=== PATIENT | female | born 1950 | race Caucasian/White ===

== ENCOUNTER 2019-04-18 11:51 | Emergency (ER) | payer MEDICARE ==
[2019-04-18] MEDS ORDERED: Ketorolac Tromethamine 30 MG/ML VIAL ONE (12:56)
--- NOTE | 2019-04-18 12:58 | RAD ---
XR Knee Lt 4 View STANDARD History: [Chronic pain] Comparison: None. Findings: There is medial compartment joint space narrowing with flattening of the articular surfaces as well as osteophyte formation. Small reactive joint effusion. Large inferior patellar and trochlear osteophytes. Incidental note is made of a fabella. Likely multiple bodies within a popliteal cyst. Impression: Degenerative changes greatest in the medial and patellofemoral compartments.
== END 2019-04-18 13:37 | disposition home or self-care (01) ==
LOC: ERS 11:51
DX: S83.92XA Sprain of unspecified site of left knee, initial encounter (principal); I10 Essential (primary) hypertension; J45.909 Unspecified asthma, uncomplicated; Z79.899 Other long term (current) drug therapy; Z79.1 Long term (current) use of non-steroidal anti-inflammatories (NSAID); X58.XXXA Exposure to other specified factors, initial encounter
CPT/HCPCS: 96372; J1885

== ENCOUNTER 2020-03-04 14:19 | Observation (INO) | payer MEDICARE ==
[2020-03-04] MEDS ORDERED: Adacel (T-DAP) 0.5 ML SYRINGE ONE (14:22)
[2020-03-04 14:39] LABS: #Eosinphils 0.2 thou/uL (0.0-0.7); #Lymphocytes 1.6 thou/uL (1.20-3.40); #Monocytes 0.6 thou/uL (0.11-0.59); #Neutrophils 7.5 thou/uL (1.40-6.50); %Basophils 0.4 % (0.0-1.0); %Eosinophils 1.6 % (0.0-10.0); %Lymphocytes 16.1 % (21.0-51.0); %Monocytes 6.1 % (0.0-10.0); %Neutrophils 75.8 % (42.0-75.0); Hemoglobin 10.8 g/dL (12.0-16.0); Mean Corpuscular HGB CONC 30.7 g/dL (32.0-36.0); Mean Corpuscular Hemoglobin 29.2 pg (27.0-31.0); Mean Platelet Volume 8.7 fL (7.4-10.4); Platelet Count 188 thou/uL (130-400); RBC Distribution Width 11.7 % (11.5-14.5); Red Blood Cell (RBC) Count 3.69 mill/uL (4.20-5.40); White Blood Cell (WBC) Count 9.9 thou/uL (4.8-10.8)
--- NOTE | 2020-03-04 14:49 | RAD ---
FRONTAL RADIOGRAPH CHEST: Date: 03/04/2020 COMPARISON: None. HISTORY: Fall, trauma, pain. FINDINGS: Prominence of the cardiac silhouette noted. Mild nonspecific increased linear interstitial density. N o lobar consolidation or alveolar edema. IMPRESSION: No focal consolidation or alveolar edema. POS: [facility]
[2020-03-04] MEDS ORDERED: Morphine 4 MG/ML VIAL ONE (14:58)
[2020-03-04] MEDS ORDERED: Lidocaine 1% w/Epinephrine 1:100K 20 ML VIAL ONE (14:58)
[2020-03-04 15:10] LABS: ALT (SGPT) 11 U/L (8-55); AST (SGOT) 14 U/L (5-34); Albumin 4.1 g/dL (3.4-4.8); Alkaline Phosphatase 60 U/L (40-110); Anion Gap 12 mmol/L (10-20); BUN (Urea Nitrogen) 27 mg/dL (9.8-20.1); Bilirubin, Total Less than 0.2 mg/dL (0.2-1.2); Calc. Creatinine Clearance 0 mL/min (70-130); Calcium 9.2 mg/dL (7.8-10.44); Carbon Dioxide 25 mmol/L (23-31); Chloride 109 mmol/L (98-107); Estimated GFR-MDRD 47; Glucose 96 mg/dL (83-110); Potassium 4.2 mmol/L (3.5-5.1); Protein, Total 7.1 g/dL (6.0-8.3); Sodium 142 mmol/L (136-145)
--- NOTE | 2020-03-04 15:17 | CT ---
CT ABDOMEN AND PELVIS WITHOUT CONTRAST: HISTORY: Level II trauma. Abdominal pain. FINDINGS: Comparison is made with the exam of 03/17/2016. Absence of oral and IV contrast reduces the sensitivity of the exam, particularly for evaluation of s olid organs involved. The liver, spleen, pancreas, adrenal glands, and kidneys have a stable appearance. No free air or fr ee fluid is seen. No calcified gallstones are seen. The gallbladder and urinary bladder appear inta ct. The small bowel loops are not abnormally dilated. A punctate nonobstructing right renal calculus is present. There are vascular calcifications without evidence of aneurysmal dilatation of the abdomina l aorta. There is colonic diverticulosis. There are degenerative changes of the lower lumbar spine. Also noted are postop changes of the lower lumbar spine. There is mild dilatation of the subcutaneous fat with foci of free air noted in the posterolateral as pect of the right lower chest and upper abdomen. There are fractures involving the right 11th and 12 th ribs. IMPRESSION: 1. Soft tissue air and induration of fat in the right posterolateral lower chest and abdomen. 2. Fractures of the right 11th and 12th ribs. Discussed over the telephone with the ER physician, Dr. Delgado at 2:49 p.m. CODE CR POS: [facility]
[2020-03-04] MEDS ORDERED: Ondansetron ODT 4 MG TAB PO PRN (16:13)
[2020-03-04] MEDS ORDERED: Dextrose 50% Abboject 50 ML SYRINGE SLOW IVP PRN (16:13)
[2020-03-04] MEDS ORDERED: traMADol HCl 50 MG TAB PO PRN ×2 (16:13)
[2020-03-04] MEDS ORDERED: Dextrose 5% in Water 1,000 ML IV PRN (16:13)
[2020-03-04] MEDS ORDERED: Ondansetron PF 4 MG/2 ML Vial IVP PRN (16:13)
[2020-03-04] MEDS ORDERED: Cyclobenzaprine 10 MG TAB PO PRN (16:13)
[2020-03-04] MEDS ORDERED: Ibuprofen 600 MG TAB PO SCH (17:00)
--- NOTE | 2020-03-04 18:42 | HP ---
REQUESTING PHYSICIAN: Dr. Delgado. ATTENDING SURGEON: Dr. German. CONSULTATIONS: None. HISTORY OF PRESENT ILLNESS: The patient is a 69-year-old woman who was working in her yard when she tripped and fell against a metal latch on her fence stabbing herself in the right anterior flank at approximately 1000 hours. She put a small bandage on herself and continued working and was visiting her brother when her pain started to get increasingly worse, at which time he called an ambulance, who brought her to the emergency department as a level 2 trauma activation for her flank laceration and increasing abdominal pain. En route, the patient was given 100 mcg of fentanyl and 2 g of Ancef. ALLERGIES: IODINE AND PENICILLIN. CURRENT MEDICATIONS: 1. Soma. 2. Hydrocodone 10 mg-325. 3. Amlodipine. 4. Metoprolol. 5. Prednisone. 6. Atorvastatin. 7. Gabapentin. PAST MEDICAL HISTORY: Osteoarthritis, degenerative joint disease, hypertension, left shoulder injury to include rotator cuff injury, asthma. PAST SURGICAL HISTORY: Appendectomy; hysterectomy; orthopedic surgery to include shoulder, foot, and spinal surgery. SOCIAL HISTORY: The patient lives at home independently. She denies drug, tobacco, or alcohol use. REVIEW OF SYSTEMS: A 10-point review of systems is negative as otherwise stated. PHYSICAL EXAMINATION: VITAL SIGNS: Blood pressure 147/69, heart rate 63, respirations 22, oxygen saturation is 96% on room air, and temperature is 98.1. GENERAL: The patient is resting comfortably in ER bed. She is awake, alert, conversant. [place] Coma Scale is 15. HEENT: Head is normocephalic, atraumatic. Eyes, extraocular motion intact. PERRLA bilaterally. Ears are atraumatic without discharge. Nose is atraumatic without discharge. Oropharynx is clear. NECK: Nontender. Trachea is midline. No JVD. CHEST: Clear to auscultation with good inspiratory and expiratory effort, though she does have some discomfort with deep inspiration, particularly on the right side near her laceration. ABDOMEN: Soft, nondistended without peritoneal signs. The patient is noted to have approximately 5 cm laceration to her right anterior flank along her right lateral rib cage with exposed subcutaneous tissue. There is no noted bleeding. PELVIS: Stable. EXTREMITIES: Neurovascularly intact x4. BACK: Atraumatic and nontender. LABORATORY FINDINGS: White blood cell count 9.9, hemoglobin 10.8, hematocrit 35.0, platelets 188. Sodium 142, potassium 4.2, chloride 109, CO2 of 25, BUN 27, creatinine 1.14, glucose 96. RADIOGRAPHIC FINDINGS: AP chest x-ray shows no focal consolidation or alveolar edema. CT of the abdomen and pelvis without contrast shows soft tissue air and induration of fat in the right posterolateral lower chest and abdomen. Fractures of right 11th and 12th ribs. ASSESSMENT AND PLAN: 1. Status post penetrating injury to right posterolateral lower chest and abdomen with delayed presentation of approximately 4 hours. 2. Fractures of right ribs 11 and 12. 3. Acute on chronic pain. 4. History of hypertension and asthma. PLAN: Plan will be to admit the patient to the surgical floor for pain control, pulmonary toilet, gastritis, and mechanical VTE prophylaxis. The patient will likely be able to be discharged home tomorrow. The evaluation and examination were done with Dr. German in the [facility] at the time of the patient's arrival. Job ID: [id number]
[2020-03-04] MEDS: Famotidine 20 MG TAB PO SCH (20:42)
[2020-03-04] MEDS: predniSONE 5 MG TAB PO SCH (20:43)
[2020-03-04] MEDS ORDERED: Gabapentin 100 MG CAP PO SCH (21:00)
[2020-03-04] MEDS ORDERED: Amlodipine 10 MG TAB PO SCH (21:00)
[2020-03-04] MEDS: HYDROcodone/Acetaminophen 10/325 mg Tablet PO PRN (22:16)
[2020-03-04] MEDS: Acetaminophen 500 MG TAB PO SCH (22:50)
--- NOTE | 2020-03-05 00:33 | PRG ---
DATE OF SERVICE: 03/04/2020 SUBJECTIVE: Ms. Fajardo remained on the surgical floor. The patient was seen on rounds this evening. The patient reports pain is well controlled. She tolerated with her regular diet. She developed no fever or shortness of breath. The patient denied nausea or vomiting. OBJECTIVE: GENERAL: Currently, the patient lying in bed comfortable with no acute respiratory distress. VITAL SIGNS: Stable. LUNGS: Clear bilaterally. HEART: Regular rate and rhythm. ABDOMEN: Soft, nondistended. EXTREMITIES: Neurovascularly intact x4. NEUROLOGY: No focal neurologic deficits. ASSESSMENT: 1. Status post penetrating injury of the right lower chest and abdomen. 2. Right rib fracture. 3. History of hypertension and asthma. PLAN: Will be continue supportive care. Continue pain control. We will resume on home medication. The patient will be working on physical therapy and occupational therapy tomorrow. Job ID: [id number]
[2020-03-05] MEDS: Acetaminophen 500 MG TAB PO SCH (00:34)
[2020-03-05 00:41] VITALS: BMI 36.8
[2020-03-05] MEDS: HYDROcodone/Acetaminophen 10/325 mg Tablet PO PRN (05:15)
[2020-03-05] MEDS ORDERED: Acetaminophen 325 MG TAB PO SCH ×2 (06:00→08:53)
[2020-03-05 08:10] LABS: #Eosinphils 0.3 thou/uL (0.0-0.7); #Lymphocytes 1.9 thou/uL (1.20-3.40); #Monocytes 0.4 thou/uL (0.11-0.59); #Neutrophils 4.4 thou/uL (1.40-6.50); %Basophils 0.2 % (0.0-1.0); %Lymphocytes 27.1 % (21.0-51.0); %Monocytes 6.1 % (0.0-10.0); %Neutrophils 62.6 % (42.0-75.0); Hemoglobin 10.5 g/dL (12.0-16.0); Mean Corpuscular HGB CONC 31.2 g/dL (32.0-36.0); Mean Corpuscular Volume 96.3 fL (78.0-98.0); Mean Platelet Volume 8.3 fL (7.4-10.4); Platelet Count 166 thou/uL (130-400); RBC Distribution Width 11.6 % (11.5-14.5)
[2020-03-05 08:22] LABS: Anion Gap 12 mmol/L (10-20); BUN (Urea Nitrogen) 19 mg/dL (9.8-20.1); Calc. Creatinine Clearance 99 mL/min (70-130); Carbon Dioxide 25 mmol/L (23-31); Chloride 108 mmol/L (98-107); Estimated GFR-MDRD 66; Glucose 95 mg/dL (83-110); Magnesium 1.9 mg/dL (1.6-2.6); Phosphorus 3.6 mg/dL (2.3-4.7); Potassium 4.6 mmol/L (3.5-5.1); Sodium 140 mmol/L (136-145)
[2020-03-05] MEDS ORDERED: HYDROcodone/Acetaminophen 10/325 mg Tablet PO PRN (08:52)
[2020-03-05] MEDS ORDERED: Gabapentin 300 MG CAP PO SCH ×2 (09:00→18:00)
[2020-03-05] MEDS: HYDROcodone/Acetaminophen 10/325 mg Tablet PO SCH ×3 (09:40→16:41)
--- NOTE | 2020-03-05 09:40 | RAD ---
CHEST 1 VIEW: INDICATION: History of followup examination for trauma. COMPARISON: Chest radiograph dated 03/04/2020. FINDINGS: Mild cardiomegaly is stable-appearing. Lungs are clear. Minimal blunting of the left costophrenic a ngle is stable-appearing. No pneumothorax is demonstrated. Osseous structures are unchanged. IMPRESSION: 1. Stable mild blunting of the left costophrenic angle may reflect a tiny left pleural effusion. 2. Stable cardiomegaly. POS: [facility]
[2020-03-05] MEDS: predniSONE 5 MG TAB PO SCH (09:41)
[2020-03-05] MEDS: Famotidine 20 MG TAB PO SCH (09:41)
[2020-03-05] MEDS ORDERED: CARISOPRODOL 350 MG PO PRN (09:57)
[2020-03-05] MEDS ORDERED: Magnesium 2 GM/50 ML 2 GM in Premix Bag 1 BAG IVPB SCH (10:15)
[2020-03-05] MEDS ORDERED: Triamcinolone 0.1% Cream 15 GM TUBE TOP PRN (10:37)
[2020-03-05] MEDS ORDERED: Cyclobenzaprine 10 MG TAB PO PRN (10:42)
--- NOTE | 2020-03-05 13:06 | PRG ---
DATE OF SERVICE: 03/05/2020 SUBJECTIVE: The patient was seen this morning during rounds. She was sitting up at the edge of the bed and reported she had just gone to the restroom on her own. She states her pain is very poorly controlled. She has a history of chronic pain for which she is seeing her primary care physician and receives scheduled narcotics. She is not requiring any nasal cannula oxygen at this time, but she reports her pain is at a 9/10. On admission, she also had an acute kidney injury, which is complicating her pain management. OBJECTIVE: VITAL SIGNS: Temperature 97.5, pulse 59, respirations 16, oxygen saturation 95% on room air, blood pressure 126/66. GENERAL: Elderly female, sitting up at edge of bed with no signs of acute distress. PULMONARY: Equal chest rise and fall. Clear breath sounds bilaterally, but diminished at bases bilaterally. No signs of acute respiratory distress. CARDIAC: Bradycardic, but regular rhythm. No murmurs, gallops, or rubs. GI: Abdomen is soft, nontender, nondistended. EXTREMITIES: 2+ pulses in all extremities. Gross motor and sensation are intact. No significant swelling noted. NEUROLOGICAL: GCS is 15. LABORATORY FINDINGS: White count 7, hemoglobin 10.5, hematocrit 33.7, platelets 166. Sodium 140, potassium 4.6, chloride 108, bicarb 25, BUN 19, creatinine 0.85. Phosphorus 3.6, magnesium 1.9. DIAGNOSTIC FINDINGS: Chest x-ray completed this morning demonstrates stable mild blunting of the left costophrenic angle, may reflect the tiny left pleural effusion. Stable cardiomegaly. ASSESSMENT: 1. Status post mechanical fall from standing. 2. Right posterior lateral lower chest wall and abdomen abrasion, stable. 3. Right-sided 11th and 12th rib fractures, stable. 4. Acute kidney injury, resolving. 5. Complicated acute traumatic pain on chronic pain, unstable, worse. 6. History of osteoarthritis, degenerative joint disease, hypertension, left rotator cuff injury, asthma, and chronic pain. PLAN: Continue current regular diet. Continue incentive spirometry, and aggressive pulmonary hygiene. Continue amlodipine and metoprolol with hold parameters. The patient restarted on her home regimen for pain control, which includes [place] 10 one q.4 hours, gabapentin 600 t.i.d. with an additional 1200 at night. We will continue also Flexeril p.r.n. and add another [place] 10 mg q.6 h. p.r.n. for breakthrough pain. Discontinue scheduled Tylenol as the patient's [place] prescription will be close to the 1 g maximum. We will hold NSAIDs as the patient had a recent acute kidney injury. Restart her home prednisone. The patient is to work with Physical and Occupational Therapy today. She will likely need placement in acute rehab facility as she has complicated pain management with a history of chronic pain, being treated by her primary care physician. She is on several scheduled medications that will need adjustment as well. It is important that we achieve good pain control and continue aggressive pulmonary hygiene as the patient is at a very high risk for developing a pneumonia as she is greater than 63 years of age. She will also need close followup for her resolving acute kidney injury. The patient lives at home alone and will be high risk for developing a pneumonia and DVT at home. We will follow up with recommendations from physical therapy and ask Case Management to start working on rehab placement. This patient was seen and evaluated by Dr. German and myself this morning during rounds. Job ID: [id number]
[2020-03-05 16:14] VITALS: BP 116/71; TEMP 97.6
[2020-03-05] MEDS ORDERED: Prevnar 13-Val Conj/PF 0.5 ML SYRINGE IM ONE (21:00)
[2020-03-05] MEDS ORDERED: Gabapentin 400 MG CAP PO SCH (21:00)
[2020-03-05] MEDS ORDERED: Amlodipine 10 MG TAB PO SCH (21:00)
--- NOTE | 2020-03-06 07:13 | DIS ---
DATE OF ADMISSION: 03/04/2020 DATE OF DISCHARGE: 03/05/2020 ADMISSION DIAGNOSES: Mechanical fall, right posterolateral chest and abdominal wound, and right 11th and 12th rib fracture, and acute kidney injury. DISCHARGE DIAGNOSES: Mechanical fall, right posterolateral chest and abdominal wound, and right 11th and 12th rib fracture. CONSULTING PHYSICIAN: None. PROCEDURES: None. HOSPITAL COURSE: The patient is a 69-year-old female, who presented to the emergency department after a mechanical fall. She was evaluated and found to have a right 11th and 12th rib fracture as well as a right posterolateral lower chest and abdominal wall wound, which required no intervention. At that time, she also had an acute kidney injury, which resolved the next day. She was admitted for pain control. The next day, she worked with Physical and Occupational Therapy and had good pulmonary hygiene. At the time of discharge, her pain was well controlled. She does take quite a few pain medications at home as she has chronic pain and takes multiple medications including Soma, gabapentin, and [place]. At the time of discharge, her pain was well controlled on a regimen, and she was told to follow up for additional [place] pain medications from her primary care physician, who prescribes medication. She was told to take an additional [place] 10 q.6 hours p.r.n. for breakthrough pain. No additional [place] prescription was given to her at the time of discharge. DISCHARGE DISPOSITION: Home. DISCHARGE CONDITION: Satisfactory. PHYSICAL EXAMINATION: VITAL SIGNS: Temperature 97.8, pulse 60, respirations 16, oxygen saturation 96% on room air, and blood pressure 105/68. GENERAL: Well-appearing elderly female, sitting up in bed with no signs of acute distress. PULMONARY: Equal chest rise and fall. Clear breath sounds bilaterally. No signs of acute respiratory distress. CARDIAC: Regular rate and rhythm. No murmurs, gallops, or rubs. GASTROINTESTINAL: Soft, nontender, nondistended. EXTREMITIES: 2+ pulses in all extremities. Gross motor and sensation are intact. No significant swelling noted. NEUROLOGIC: GCS 15. DISCHARGE INSTRUCTIONS: The patient was discharged home. Activity as tolerated. Regular diet. Incentive spirometry 10 to 15 times an hour while awake. Avoid sleeping and lying down too much. DISCHARGE MEDICATIONS: Included, 1. Amlodipine. 2. Flexeril. 3. Gabapentin at her home dose. 4. [place] 10 at her home dose of q.4 hours with an additional 10 q.6 hours for breakthrough pain. 5. Metoprolol. 6. Prednisone. 7. Triamcinolone cream. 8. Soma. 9. Lidocaine patches. 10. Valtrex. FOLLOWUP APPOINTMENTS: The patient is to follow up with her primary care physician in the next 5 to 7 days for pain management. She is also to follow up with trauma clinic on March 19, 2020, at 2 p.m. with a chest x-ray. This is a summary of the patient's hospitalization. For full details, please see her medical record in its entirety. Job ID: [id number]
== END 2020-03-05 17:00 | disposition home or self-care (01) ==
LOC: ERS 14:19 → SURG A 15:11
PROVIDERS: ADMIT Surgery; ATTEND Surgery
DX: S21.131A Puncture wound without foreign body of right front wall of thorax without penetration into thoracic cavity, initial encounter (principal); S31.139A Puncture wound of abdominal wall without foreign body, unspecified quadrant without penetration into peritoneal cavity, initial encounter; S22.41XA Multiple fractures of ribs, right side, initial encounter for closed fracture; G89.11 Acute pain due to trauma; N17.9 Acute kidney failure, unspecified; G89.29 Other chronic pain; I10 Essential (primary) hypertension; J45.909 Unspecified asthma, uncomplicated; M19.90 Unspecified osteoarthritis, unspecified site; Z79.52 Long term (current) use of systemic steroids; Z79.899 Other long term (current) drug therapy; Z88.0 Allergy status to penicillin; Z88.8 Allergy status to other drugs, medicaments and biological substances; W01.198A Fall on same level from slipping, tripping and stumbling with subsequent striking against other object, initial encounter; Y92.096 Garden or yard of other non-institutional residence as the place of occurrence of the external cause
CPT/HCPCS: 12002; 71045 ×2; 74176; 80048; 80053; 83735; 84100; 85025 ×2; 86850; 86900; 86901; 90471; 90715; 94640 ×2; 94760; 96361; 96365; 96375; 97139 ×3; 97535; 99285; G0378 ×3; J2270; J3475; J7512 ×2; J7620 ×2; 36415; 96374; G0390

== ENCOUNTER 2020-03-18 14:13 | Outpatient (CLI) | payer MEDICARE ==
--- NOTE | 2020-03-18 14:32 | RAD ---
Chest 2 views HISTORY: Chest pain. Rib fracture. COMPARISON: 03/05/2020. FINDINGS: Cardiac silhouette is unremarkable. Pulmonary vasculature upper limits of normal with wides pread reticulonodular interstitial prominence. Mediastinum is midline. Lungs remain slightly hyperinflated. No confluent airspace consolidation, pleural fluid, or pneumothorax. Right lower rib fractures not visible on this exam. IMPRESSION : Borderline pulmonary vascular congestion.
== END 2020-03-18 14:14 | disposition home or self-care (01) ==
LOC: BICRAD 14:13
PROVIDERS: ATTEND Physician Assistant
DX: S22.39XA Fracture of one rib, unspecified side, initial encounter for closed fracture (principal); I28.8 Other diseases of pulmonary vessels
CPT/HCPCS: 71046

== ENCOUNTER 2020-09-09 14:10 | Emergency (ER) | payer MEDICARE ==
--- NOTE | 2020-09-09 15:10 | RAD ---
Right hip 2 views HISTORY: Fall. Injury. FINDINGS: Mild joint space narrowing, osteophytosis, and subchondral sclerosis. Femoral head contour is maintained. Small enthesophyte projects laterally from the greater trochanter. No acute fracture or dislocation. IMPRESSION : Mild osteoarthritic changes right hip. No acute osseous abnormalities are demonstrated.
[2020-09-09] MEDS ORDERED: Ketorolac Tromethamine 30 MG/ML VIAL ONE (15:33)
--- NOTE | 2020-09-10 07:00 | RAD ---
Right knee 4 views HISTORY: Fall. Injury. FINDINGS: Near complete loss of joint space at the medial compartment with cortical remodeling of the articular surfaces and moderate osteophytosis. Gas present within the joint space. Mild osteophytosis of the other compartments. Small amount of fluid distends the suprapatellar bursa on the lateral view. A 0.5 cm oval calcification projecting just anterior to the distal femur on the lateral view is favored to be outside of the joint fluid and may represent a phlebolith or other soft tissue calcification rather than an intracapsular loose body. IMPRESSION : Prominent OsteoArthritic changes medial compartment with small joint effusion.
--- NOTE | 2020-09-10 07:00 | RAD ---
Exam: XR Ankle Rt 3 View STANDARD HISTORY: Injury after a fall. Right foot pain. COMPARISON: 01/07/2011 FINDINGS: No acute fracture, dislocation, or other acute osseous abnormality is identified. There is an osseous fragment just dorsal to the navicular bone which was not seen on study in 2010. T his is suggestive of a avulsion injury. However, the margins appear corticated, and this likely represents a more remote finding. There is subcutaneous soft tissue swelling seen about the ankle fernando aterally as well as dorsal to the mid foot. Posterior and plantar calcaneal enthesophytes are identified. Osteopenia is present. IMPRESSION: 1. No acute osseous abnormality is identified. 2. Subcutaneous soft tissue swelling. 3. Findings suggestive of a remote avulsion injury dorsal aspect of the navicular bone.
== END 2020-09-09 16:05 | disposition home or self-care (01) ==
LOC: ERS 14:10
DX: S93.401A Sprain of unspecified ligament of right ankle, initial encounter (principal); S76.011A Strain of muscle, fascia and tendon of right hip, initial encounter; S80.01XA Contusion of right knee, initial encounter; M19.90 Unspecified osteoarthritis, unspecified site; I10 Essential (primary) hypertension; J45.909 Unspecified asthma, uncomplicated; W10.9XXA Fall (on) (from) unspecified stairs and steps, initial encounter
CPT/HCPCS: 96374; J1885

== ENCOUNTER 2020-12-20 16:44 | Emergency (ER) | payer MEDICARE ==
--- NOTE | 2020-12-20 17:22 | RAD ---
Radiograph right foot 3 views: 12/20/2020 HISTORY: 70-year-old female with acute, traumatic foot pain COMPARISON: 01/07/2011 FINDINGS: There is new finding of diffuse severe osteoporosis of the entire foot. There is a new finding of flattening of Boehler's angle, with increased density of the depressed midd le portion of the calcaneus compared to the anterior and posterior portions. Although no fracture lucency is visualized, that could be because the fracture is impacted in a severely osteoporotic bone . There are predominantly mild degenerative changes in the midfoot, greater than before. There is diffuse soft tissue edema. IMPRESSION: 1. Collapse of Boehler's angle representing an impacted calcaneal fracture of indeterminate age, but favored to be acute. 2. Severe osteoporosis.
== END 2020-12-20 20:59 | disposition home or self-care (01) ==
LOC: ERS 16:44
DX: S92.001A Unspecified fracture of right calcaneus, initial encounter for closed fracture (principal); M19.90 Unspecified osteoarthritis, unspecified site; I10 Essential (primary) hypertension; J45.909 Unspecified asthma, uncomplicated; Z79.899 Other long term (current) drug therapy; Z79.1 Long term (current) use of non-steroidal anti-inflammatories (NSAID); W17.89XA Other fall from one level to another, initial encounter

== ENCOUNTER 2022-04-16 09:57 | Outpatient (CLI) | payer MEDICARE ==
[2022-04-16 11:30] LABS: Anion Gap 16 mmol/L (10-20); BUN (Urea Nitrogen) 21 mg/dL (9.8-20.1); Calc. Creatinine Clearance 0 mL/min (70-130); Calcium 9.6 mg/dL (7.8-10.44); Carbon Dioxide 25 mmol/L (23-31); Chloride 105 mmol/L (98-107); Glucose 92 mg/dL (83-110); Potassium 3.8 mmol/L (3.5-5.1); Sodium 142 mmol/L (136-145)
[2022-04-16 11:36] LABS: INR-International Normal Ratio 0.9; Prothrombin Time 9.8 sec (9.5-12.1)
[2022-04-16 11:41] LABS: #Basophils 0.1 10x3/uL (0.0-0.2); #Eosinphils 0.5 10x3/uL (0.0-0.5); #Monocytes 0.5 10x3/uL (0.0-1.1); #Neutrophils 3.5 10x3/uL (1.5-8.4); %Basophils 0.8 % (0.0-2.0); %Eosinophils 7.3 % (0.0-6.0); %Lymphocytes 26.5 % (18.0-47.0); %Monocytes 8.7 % (0.0-10.0); %Neutrophils 56.4 % (40.0-75.0); Hemoglobin 11.1 g/dL (12.0-15.5); Mean Corpuscular HGB CONC 31.4 g/dL (32.0-36.0); Mean Corpuscular Hemoglobin 30.5 pg (27.0-33.0); Mean Corpuscular Volume 97.3 fl (81.6-98.3); Mean Platelet Volume 10.4 fl (7.4-10.4); Platelet Count 208 10x3/uL (150-450); Red Blood Cell (RBC) Count 3.64 10x6/uL (3.90-5.03); White Blood Cell (WBC) Count 6.2 10x3/uL (3.5-10.5)
[2022-04-16 20:41] LABS: SARS-CoV-2 PCR by NAA Not Detected (NotDetected)
== END 2022-04-16 09:58 | disposition home or self-care (01) ==
LOC: LABBT 09:57
PROVIDERS: ATTEND Orthopaedic Surgery
DX: Z01.812 Encounter for preprocedural laboratory examination (principal); M17.0 Bilateral primary osteoarthritis of knee; Z20.822 Contact with and (suspected) exposure to COVID-19
CPT/HCPCS: 80048; 85025; 85610; 87081; U0003; U0005

== ENCOUNTER 2022-04-21 06:55 | Inpatient (IN) | payer MEDICARE ==
[2022-04-20 11:45] VITALS: BMI 38.7
[2022-04-21] MEDS ORDERED: Sodium Chloride 0.9% 100 ML ONE (07:48)
[2022-04-21] MEDS ORDERED: Vancomycin (BATCH) 1.5 GRAM/300 ML BAG ONE (07:48)
[2022-04-21] MEDS ORDERED: Tranexamic Acid 1,000 MG/10 ML VIAL ONE (07:48)
[2022-04-21] MEDS ORDERED: traMADol HCl 50 MG TAB PO PRN (08:00)
[2022-04-21] MEDS ORDERED: Ropivacaine 0.2% 550 ML 550 ML NERVE BLCK SCH (08:00)
[2022-04-21] MEDS ORDERED: Promethazine HCl 25 MG/ML VIAL IM PRN ×2 (08:00→10:11)
[2022-04-21] MEDS ORDERED: Zolpidem Tartrate 5 MG TAB PO PRN (08:00)
[2022-04-21] MEDS ORDERED: Midazolam HCl 2 mg/2 ml Vial ONE (08:08)
[2022-04-21] MEDS ORDERED: Fentanyl 100 MCG/2 ML VIAL ONE ×3 (08:08→11:42)
[2022-04-21] MEDS ORDERED: Levofloxacin 500 mg/D5W 100 ml Premix Bag ONE (09:18)
[2022-04-21] MEDS ORDERED: Bupivacaine PF 0.5% 30 ML VIAL ONE (09:18)
[2022-04-21] MEDS ORDERED: fentaNYL Citrate/PF 100 MCG/2 ML SYRINGE ONE ×2 (09:20→10:15)
[2022-04-21] MEDS ORDERED: diphenhydrAMINE 50 MG/ML VIAL ONE (09:33)
[2022-04-21] MEDS ORDERED: Lidocaine 1% PF 5 ML VIAL ONE (09:33)
[2022-04-21] MEDS ORDERED: PROPOFOL 200 MG/20 ML VIAL ONE (09:33)
[2022-04-21] MEDS ORDERED: Ondansetron PF 4 MG/2 ML Vial ONE (09:33)
[2022-04-21] MEDS ORDERED: Bupivacaine HCl 0.5%/Epinephrine 1:200,000/PF 30 ml Vial ONE (09:33)
[2022-04-21] MEDS ORDERED: Ketorolac Tromethamine 30 MG/ML VIAL ONE (09:33)
[2022-04-21] MEDS ORDERED: Dexamethasone 20 MG/5 ML VIAL ONE (09:33)
[2022-04-21] MEDS ORDERED: Meperidine HCl/PF 25 MG/ML VIAL SLOW IVP PRN (10:11)
[2022-04-21] MEDS ORDERED: Promethazine HCl 25 MG/ML VIAL IVPB PRN (10:11)
[2022-04-21] MEDS ORDERED: PACU-Morphine 4MG/ML VIAL SLOW IVP PRN (10:11)
[2022-04-21] MEDS ORDERED: Acetaminophen 325 MG TAB PO PRN (11:31)
[2022-04-21] MEDS ORDERED: diphenhydrAMINE 25 MG CAP PO PRN (11:31)
[2022-04-21] MEDS ORDERED: Ketorolac Tromethamine 30 MG/ML VIAL IVP SCH (12:00)
[2022-04-21] MEDS ORDERED: Albuterol 200 PUFF (6.7GM INHALER) INH PRN (12:56)
[2022-04-21] MEDS: Gabapentin 300 MG CAP PO SCH ×2 (13:06→17:59)
[2022-04-21] MEDS: HYDROcodone/Acetaminophen 10/325 mg Tablet PO PRN ×2 (13:07→20:22)
[2022-04-21] MEDS: Sodium Chloride 0.9% 1,000 ML IV SCH ×2 (13:57→20:22)
[2022-04-21] MEDS: Clindamycin/D5W 900 MG in Premix Bag 1 BAG IVPB SCH ×2 (14:37→20:23)
[2022-04-21] MEDS: Ketorolac Tromethamine 30 MG/ML VIAL IVP SCH (17:09)
[2022-04-21] MEDS ORDERED: Gabapentin 300 MG CAP PO SCH (17:45)
[2022-04-21] MEDS ORDERED: Vancomycin HCl 1.5 GM in Sodium Chloride 0.9% 250 ML 300 ML IVPB SCH (20:00)
[2022-04-21] MEDS: Gabapentin 400 MG CAP PO SCH (20:19)
[2022-04-21] MEDS: Amlodipine 10 MG TAB PO SCH (20:20)
[2022-04-21] MEDS: Senokot S 8.6-50 MG TAB PO SCH (20:21)
[2022-04-21] MEDS: Ferrous Gluconate 324 MG TAB PO SCH (20:21)
[2022-04-21] MEDS: Aspirin 81 mg Enteric Coated Tablet PO SCH (20:21)
[2022-04-21] MEDS ORDERED: Gabapentin 400 MG CAP PO SCH (21:00)
[2022-04-21] MEDS ORDERED: Amlodipine 10 MG TAB PO SCH (21:00)
[2022-04-22] MEDS: Ketorolac Tromethamine 30 MG/ML VIAL IVP SCH ×5 (00:01→23:35)
[2022-04-22] MEDS: HYDROcodone/Acetaminophen 10/325 mg Tablet PO PRN ×5 (01:14→20:21)
[2022-04-22 05:44] LABS: Hemoglobin 9.4 g/dL (12.0-16.0); Mean Corpuscular Hemoglobin 31.4 pg (27.0-31.0); Mean Corpuscular Volume 95.3 fL (78.0-98.0); Mean Platelet Volume 7.5 fL (7.4-10.4); Platelet Count 181 thou/uL (130-400); RBC Distribution Width 11.2 % (11.5-14.5); Red Blood Cell (RBC) Count 2.99 mill/uL (4.20-5.40); White Blood Cell (WBC) Count 9.5 thou/uL (4.8-10.8)
[2022-04-22 06:08] LABS: Anion Gap 11 mmol/L (10-20); BUN (Urea Nitrogen) 22 mg/dL (9.8-20.1); Calc. Creatinine Clearance 96 mL/min (70-130); Calcium 8.5 mg/dL (7.8-10.44); Carbon Dioxide 27 mmol/L (23-31); Chloride 105 mmol/L (98-107); Glucose 100 mg/dL (83-110); Potassium 4.1 mmol/L (3.5-5.1); Sodium 139 mmol/L (136-145)
[2022-04-22] MEDS: Gabapentin 300 MG CAP PO SCH ×3 (08:48→17:40)
[2022-04-22] MEDS: Multivitamin W/ Minerals 1 TAB PO SCH (08:48)
[2022-04-22] MEDS: predniSONE 5 MG TAB PO SCH (08:48)
[2022-04-22] MEDS: Senokot S 8.6-50 MG TAB PO SCH ×2 (08:49→20:22)
[2022-04-22] MEDS: Ferrous Gluconate 324 MG TAB PO SCH ×2 (08:49→20:21)
[2022-04-22] MEDS: Aspirin 81 mg Enteric Coated Tablet PO SCH ×2 (08:49→20:21)
[2022-04-22] MEDS: Sodium Chloride 0.9% 1,000 ML IV SCH ×2 (08:53→17:34)
[2022-04-22] MEDS: Amlodipine 10 MG TAB PO SCH (20:21)
[2022-04-22] MEDS: Gabapentin 400 MG CAP PO SCH (20:28)
[2022-04-23] MEDS: HYDROcodone/Acetaminophen 10/325 mg Tablet PO PRN ×6 (00:12→20:36)
[2022-04-23] MEDS: Sodium Chloride 0.9% 1,000 ML IV SCH ×2 (02:08→15:31)
[2022-04-23] MEDS: Ketorolac Tromethamine 30 MG/ML VIAL IVP SCH ×2 (05:40→12:34)
[2022-04-23 06:21] LABS: Hemoglobin 8.7 g/dL (12.0-16.0); Mean Corpuscular HGB CONC 32.7 g/dL (32.0-36.0); Mean Corpuscular Hemoglobin 31.7 pg (27.0-31.0); Mean Corpuscular Volume 96.8 fL (78.0-98.0); Mean Platelet Volume 8.1 fL (7.4-10.4); Platelet Count 163 thou/uL (130-400); RBC Distribution Width 11.4 % (11.5-14.5); Red Blood Cell (RBC) Count 2.74 mill/uL (4.20-5.40); White Blood Cell (WBC) Count 8.1 thou/uL (4.8-10.8)
[2022-04-23] MEDS: Multivitamin W/ Minerals 1 TAB PO SCH (08:28)
[2022-04-23] MEDS: Aspirin 81 mg Enteric Coated Tablet PO SCH ×2 (08:28→20:27)
[2022-04-23] MEDS: Ferrous Gluconate 324 MG TAB PO SCH ×2 (08:28→20:27)
[2022-04-23] MEDS: predniSONE 5 MG TAB PO SCH (08:29)
[2022-04-23] MEDS: Gabapentin 300 MG CAP PO SCH ×3 (08:29→16:49)
[2022-04-23] MEDS: Senokot S 8.6-50 MG TAB PO SCH ×2 (08:34→20:28)
[2022-04-23] MEDS: Ondansetron PF 4 MG/2 ML Vial IVP PRN ×2 (09:26→19:13)
[2022-04-23] MEDS: Gabapentin 400 MG CAP PO SCH (20:28)
[2022-04-23] MEDS: Amlodipine 10 MG TAB PO SCH (20:28)
[2022-04-24] MEDS: Sodium Chloride 0.9% 1,000 ML IV SCH ×3 (00:01→19:12)
[2022-04-24] MEDS: HYDROcodone/Acetaminophen 10/325 mg Tablet PO PRN ×5 (04:41→21:21)
[2022-04-24] MEDS: traMADol HCl 50 MG TAB PO PRN (04:49)
[2022-04-24] MEDS: Cyclobenzaprine 10 MG TAB PO PRN ×2 (04:50→17:28)
[2022-04-24] MEDS: Fentanyl 100 MCG/2 ML VIAL IV PRN (05:48)
[2022-04-24] MEDS: Ondansetron PF 4 MG/2 ML Vial IVP PRN (06:10)
[2022-04-24 06:29] LABS: Hemoglobin 8.8 g/dL (12.0-16.0); Mean Corpuscular HGB CONC 31.7 g/dL (32.0-36.0); Mean Corpuscular Hemoglobin 31.3 pg (27.0-31.0); Mean Corpuscular Volume 98.7 fL (78.0-98.0); Mean Platelet Volume 7.8 fL (7.4-10.4); Platelet Count 177 thou/uL (130-400); RBC Distribution Width 11.3 % (11.5-14.5); White Blood Cell (WBC) Count 7.1 thou/uL (4.8-10.8)
[2022-04-24] MEDS: Gabapentin 300 MG CAP PO SCH ×3 (09:07→17:28)
[2022-04-24] MEDS: Senokot S 8.6-50 MG TAB PO SCH ×2 (09:07→19:14)
[2022-04-24] MEDS: Multivitamin W/ Minerals 1 TAB PO SCH (09:07)
[2022-04-24] MEDS: predniSONE 5 MG TAB PO SCH (09:08)
[2022-04-24] MEDS: Ferrous Gluconate 324 MG TAB PO SCH ×2 (09:08→20:28)
[2022-04-24] MEDS: Aspirin 81 mg Enteric Coated Tablet PO SCH ×2 (09:09→20:28)
[2022-04-24] MEDS ORDERED: HYDROcodone/Acetaminophen 10/325 mg Tablet PO PRN (17:20)
[2022-04-24] MEDS: Gabapentin 400 MG CAP PO SCH (20:27)
[2022-04-24] MEDS: Amlodipine 10 MG TAB PO SCH (20:28)
[2022-04-25] MEDS: HYDROcodone/Acetaminophen 10/325 mg Tablet PO PRN ×6 (01:16→22:34)
[2022-04-25] MEDS: Sodium Chloride 0.9% 1,000 ML IV SCH ×2 (02:26→14:17)
[2022-04-25] MEDS: Cyclobenzaprine 10 MG TAB PO PRN (04:02)
[2022-04-25 06:00] LABS: Hemoglobin 8.1 g/dL (12.0-16.0); Mean Corpuscular HGB CONC 32.3 g/dL (32.0-36.0); Mean Corpuscular Volume 99.2 fL (78.0-98.0); Mean Platelet Volume 7.5 fL (7.4-10.4); Platelet Count 195 thou/uL (130-400); RBC Distribution Width 11.3 % (11.5-14.5); Red Blood Cell (RBC) Count 2.54 mill/uL (4.20-5.40)
[2022-04-25] MEDS: Senokot S 8.6-50 MG TAB PO SCH ×2 (10:15→19:44)
[2022-04-25] MEDS: predniSONE 5 MG TAB PO SCH (10:15)
[2022-04-25] MEDS: Ferrous Gluconate 324 MG TAB PO SCH ×2 (10:15→19:44)
[2022-04-25] MEDS: Multivitamin W/ Minerals 1 TAB PO SCH (10:16)
[2022-04-25] MEDS: Aspirin 81 mg Enteric Coated Tablet PO SCH ×2 (10:16→19:45)
[2022-04-25] MEDS: Gabapentin 300 MG CAP PO SCH ×3 (10:16→18:22)
[2022-04-25] MEDS: Heparin 5,000 UNITS/ML VIAL SC SCH (19:44)
[2022-04-25] MEDS: Amlodipine 10 MG TAB PO SCH (19:46)
[2022-04-25] MEDS: hydrOXYzine 25 MG TAB PO PRN (19:46)
[2022-04-25] MEDS: Gabapentin 400 MG CAP PO SCH (19:47)
[2022-04-26] MEDS: HYDROcodone/Acetaminophen 10/325 mg Tablet PO PRN ×5 (04:12→21:11)
[2022-04-26 06:54] LABS: Hemoglobin 9.3 g/dL (12.0-16.0)
[2022-04-26] MEDS: hydrOXYzine 25 MG TAB PO PRN ×2 (08:45→21:11)
[2022-04-26] MEDS: predniSONE 5 MG TAB PO SCH (08:47)
[2022-04-26] MEDS: Senokot S 8.6-50 MG TAB PO SCH ×2 (08:47→20:10)
[2022-04-26] MEDS: Aspirin 81 mg Enteric Coated Tablet PO SCH ×2 (08:47→20:10)
[2022-04-26] MEDS: Heparin 5,000 UNITS/ML VIAL SC SCH ×3 (08:48→20:09)
[2022-04-26] MEDS: Gabapentin 300 MG CAP PO SCH ×3 (08:48→17:34)
[2022-04-26] MEDS: Multivitamin W/ Minerals 1 TAB PO SCH (08:48)
[2022-04-26] MEDS: Ferrous Gluconate 324 MG TAB PO SCH ×2 (08:48→20:09)
[2022-04-26] MEDS: Amlodipine 10 MG TAB PO SCH (20:09)
[2022-04-26] MEDS: Gabapentin 400 MG CAP PO SCH (20:10)
[2022-04-27] MEDS: HYDROcodone/Acetaminophen 10/325 mg Tablet PO PRN ×5 (04:17→22:15)
[2022-04-27 05:46] LABS: Hemoglobin 9.1 g/dL (12.0-16.0)
[2022-04-27 07:48] LABS: Anion Gap 12 mmol/L (10-20); BUN (Urea Nitrogen) 14 mg/dL (9.8-20.1); Calc. Creatinine Clearance 106 mL/min (70-130); Calcium 9.1 mg/dL (7.8-10.44); Carbon Dioxide 30 mmol/L (23-31); Chloride 103 mmol/L (98-107); Glucose 87 mg/dL (83-110); Potassium 3.8 mmol/L (3.5-5.1); Sodium 141 mmol/L (136-145)
[2022-04-27] MEDS ORDERED: diphenhydrAMINE 25 MG CAP PO PRN (07:57)
[2022-04-27] MEDS ORDERED: diphenhydrAMINE 25 MG CAP PO SCH (08:30)
[2022-04-27] MEDS: Gabapentin 300 MG CAP PO SCH ×3 (08:36→18:10)
[2022-04-27] MEDS: Ferrous Gluconate 324 MG TAB PO SCH ×2 (08:36→19:58)
[2022-04-27] MEDS: Aspirin 81 mg Enteric Coated Tablet PO SCH ×2 (08:36→19:58)
[2022-04-27] MEDS: predniSONE 5 MG TAB PO SCH (08:37)
[2022-04-27] MEDS: Multivitamin W/ Minerals 1 TAB PO SCH (08:37)
[2022-04-27] MEDS: Heparin 5,000 UNITS/ML VIAL SC SCH ×3 (08:37→19:58)
[2022-04-27] MEDS: diphenhydrAMINE 50 MG CAP PO PRN (08:37)
[2022-04-27] MEDS: Senokot S 8.6-50 MG TAB PO SCH ×2 (08:37→19:51)
[2022-04-27] MEDS: Fentanyl 100 MCG/2 ML VIAL IV PRN (11:22)
[2022-04-27] MEDS: Cyclobenzaprine 10 MG TAB PO PRN (11:23)
[2022-04-27] MEDS: Gabapentin 400 MG CAP PO SCH (19:58)
[2022-04-27] MEDS: Amlodipine 10 MG TAB PO SCH (19:58)
[2022-04-28] MEDS: HYDROcodone/Acetaminophen 10/325 mg Tablet PO PRN ×5 (04:05→21:14)
[2022-04-28] MEDS: hydrOXYzine 25 MG TAB PO PRN (04:08)
[2022-04-28] MEDS: Gabapentin 300 MG CAP PO SCH ×3 (08:33→17:23)
[2022-04-28] MEDS: predniSONE 5 MG TAB PO SCH (08:33)
[2022-04-28] MEDS: Heparin 5,000 UNITS/ML VIAL SC SCH ×3 (08:34→21:14)
[2022-04-28] MEDS: Aspirin 81 mg Enteric Coated Tablet PO SCH ×2 (08:34→21:11)
[2022-04-28] MEDS: Ferrous Gluconate 324 MG TAB PO SCH ×2 (08:34→21:11)
[2022-04-28] MEDS: Senokot S 8.6-50 MG TAB PO SCH ×2 (08:34→21:12)
[2022-04-28] MEDS: Multivitamin W/ Minerals 1 TAB PO SCH (08:34)
[2022-04-28] MEDS: diphenhydrAMINE 50 MG CAP PO PRN (17:26)
[2022-04-28] MEDS: Gabapentin 400 MG CAP PO SCH (21:13)
[2022-04-28] MEDS: Amlodipine 10 MG TAB PO SCH (21:29)
[2022-04-29] MEDS: HYDROcodone/Acetaminophen 10/325 mg Tablet PO PRN ×6 (01:53→23:11)
[2022-04-29] MEDS: Cyclobenzaprine 10 MG TAB PO PRN (01:54)
[2022-04-29 06:09] LABS: #Eosinphils 0.6 thou/uL (0.0-0.7); #Lymphocytes 1.8 thou/uL (1.20-3.40); #Monocytes 0.5 thou/uL (0.11-0.59); #Neutrophils 2.7 thou/uL (1.40-6.50); %Basophils 0.5 % (0.0-1.0); %Eosinophils 10.5 % (0.0-10.0); %Lymphocytes 31.8 % (21.0-51.0); %Monocytes 9.5 % (0.0-10.0); %Neutrophils 47.6 % (42.0-75.0); Hemoglobin 9.5 g/dL (12.0-16.0); Mean Corpuscular HGB CONC 31.6 g/dL (32.0-36.0); Mean Corpuscular Volume 98.3 fL (78.0-98.0); Mean Platelet Volume 7.2 fL (7.4-10.4); Platelet Count 282 thou/uL (130-400); RBC Distribution Width 11.7 % (11.5-14.5); Red Blood Cell (RBC) Count 3.07 mill/uL (4.20-5.40); White Blood Cell (WBC) Count 5.6 thou/uL (4.8-10.8)
[2022-04-29 06:37] LABS: Anion Gap 12 mmol/L (10-20); BUN (Urea Nitrogen) 16 mg/dL (9.8-20.1); Calc. Creatinine Clearance 100 mL/min (70-130); Calcium 9.5 mg/dL (7.8-10.44); Carbon Dioxide 30 mmol/L (23-31); Chloride 102 mmol/L (98-107); Glucose 93 mg/dL (83-110); Sodium 140 mmol/L (136-145)
[2022-04-29] MEDS: Ferrous Gluconate 324 MG TAB PO SCH ×2 (09:00→22:17)
[2022-04-29] MEDS: Aspirin 81 mg Enteric Coated Tablet PO SCH ×2 (09:01→22:22)
[2022-04-29] MEDS: Gabapentin 300 MG CAP PO SCH ×3 (09:01→16:54)
[2022-04-29] MEDS: predniSONE 5 MG TAB PO SCH (09:01)
[2022-04-29] MEDS: Senokot S 8.6-50 MG TAB PO SCH ×2 (09:02→22:24)
[2022-04-29] MEDS: Heparin 5,000 UNITS/ML VIAL SC SCH ×3 (09:02→22:16)
[2022-04-29] MEDS: Multivitamin W/ Minerals 1 TAB PO SCH (09:02)
[2022-04-29] MEDS: diphenhydrAMINE 50 MG CAP PO PRN (11:24)
[2022-04-29] MEDS ORDERED: Lidocaine 2% Viscous Solution 10 ML, Aluminum & Magnesium Hydroxide 30 ML SSW SCH (12:45)
[2022-04-29 19:40] LABS: Bilirubin Negative (Negative); Blood, Urine Negative (Negative); Clarity Clear (Clear); Glucose, Urine (Dipstick) Normal (Negative); Ketone, Urine Negative (Negative); Leukocyte Negative Leu/uL (Negative); Nitrite Negative (Negative); Protein, Urine (Dipstick) Negative (Neg-Trace); RBC/HPF 0-3 HPF (0-3); Specific Gravity, Urine 1.011 (1.002-1.036); Squamous Epithelial 0-3 HPF (0-3); Urobilinogen Normal mg/dL (Less than 2); WBC/HPF 0-3 HPF (0-3); pH, Urine 6.5 (5.0-9.0)
[2022-04-29 19:53] LABS: Bacteria/HPF Rare-Few HPF (None Seen)
[2022-04-29 19:54] LABS: Urine Culture Reflex No No
[2022-04-29] MEDS: Amlodipine 10 MG TAB PO SCH (22:19)
[2022-04-29] MEDS: traMADol HCl 50 MG TAB PO PRN (22:20)
[2022-04-29] MEDS: Gabapentin 400 MG CAP PO SCH (22:22)
[2022-04-30] MEDS: HYDROcodone/Acetaminophen 10/325 mg Tablet PO PRN ×4 (05:42→18:24)
[2022-04-30] MEDS: Gabapentin 300 MG CAP PO SCH ×3 (08:12→17:06)
[2022-04-30] MEDS: Cyclobenzaprine 10 MG TAB PO PRN (08:13)
[2022-04-30] MEDS: Heparin 5,000 UNITS/ML VIAL SC SCH ×2 (08:13→14:44)
[2022-04-30] MEDS: predniSONE 5 MG TAB PO SCH (08:14)
[2022-04-30] MEDS: Aspirin 81 mg Enteric Coated Tablet PO SCH (08:15)
[2022-04-30] MEDS: Multivitamin W/ Minerals 1 TAB PO SCH (08:15)
[2022-04-30] MEDS: Ferrous Gluconate 324 MG TAB PO SCH (08:15)
[2022-04-30] MEDS: Phenazopyridine HCl 100 MG TAB PO SCH ×3 (08:15→17:06)
[2022-04-30] MEDS: Senokot S 8.6-50 MG TAB PO SCH (08:17)
[2022-04-30 15:38] VITALS: BP 158/78; TEMP 97.8
== END 2022-04-30 18:28 | disposition home health service (06) | DRG 470 ==
LOC: SDC 06:55 → SURG A 11:31 → SDC 13:15 → SURG A 13:15 → OBSVTOIN 04-22 07:31
PROVIDERS: ADMIT Orthopaedic Surgery; ATTEND Hospitalist
PROC: 0SRD0J9 Replacement of Left Knee Joint with Synthetic Substitute, Cemented, Open Approach (ICD-10-PCS; principal; 2022-04-21)
DX: M17.12 Unilateral primary osteoarthritis, left knee (principal); D62 Acute posthemorrhagic anemia; M81.0 Age-related osteoporosis without current pathological fracture; I10 Essential (primary) hypertension; G89.4 Chronic pain syndrome; R30.0 Dysuria; J45.909 Unspecified asthma, uncomplicated; L40.9 Psoriasis, unspecified; Z91.041 Radiographic dye allergy status; Z88.0 Allergy status to penicillin; Z79.899 Other long term (current) drug therapy; Z79.891 Long term (current) use of opiate analgesic; Z90.710 Acquired absence of both cervix and uterus; Z90.49 Acquired absence of other specified parts of digestive tract; Z90.89 Acquired absence of other organs
CPT/HCPCS: 36415; 80048; 81001; 85014; 85018; 85025; 85027; 96374; 96375; 96376; A4306; C1713; C1776; G0378; J1100; J1200; J1644; J1885; J1956; J2250; J2405; J2704; J2795; J3010; J3370; J3490; J7050; J7512; S0020

== ENCOUNTER 2022-06-21 10:53 | Inpatient (IN) | payer MEDICARE ==
[2022-06-21] MEDS ORDERED: methylPREDNISolone Sod Succ/PF 125 MG/2 ML VIAL ONE (11:36)
[2022-06-21 11:47] LABS: #Eosinphils 0.3 thou/uL (0.0-0.7); #Lymphocytes 1.1 thou/uL (1.20-3.40); #Monocytes 0.3 thou/uL (0.11-0.59); %Basophils 0.1 % (0.0-1.0); %Eosinophils 3.9 % (0.0-10.0); %Lymphocytes 12.9 % (21.0-51.0); %Monocytes 3.2 % (0.0-10.0); %Neutrophils 79.9 % (42.0-75.0); Mean Corpuscular HGB CONC 32.4 g/dL (32.0-36.0); Mean Corpuscular Volume 95.6 fL (78.0-98.0); Mean Platelet Volume 7.6 fL (7.4-10.4); Platelet Count 172 thou/uL (130-400); RBC Distribution Width 11.4 % (11.5-14.5); Red Blood Cell (RBC) Count 3.56 mill/uL (4.20-5.40); White Blood Cell (WBC) Count 8.7 thou/uL (4.8-10.8)
[2022-06-21 12:11] LABS: ALT (SGPT) 11 U/L (8-55); AST (SGOT) 14 U/L (5-34); Albumin 3.9 g/dL (3.4-4.8); Alkaline Phosphatase 81 U/L (40-110); Anion Gap 15 mmol/L (10-20); BUN (Urea Nitrogen) 20 mg/dL (9.8-20.1); Bilirubin, Total 0.3 mg/dL (0.2-1.2); CK (CPK) 37 U/L (29-168); Calc. Creatinine Clearance 0 mL/min (70-130); Calcium 9.4 mg/dL (7.8-10.44); Carbon Dioxide 28 mmol/L (23-31); Chloride 104 mmol/L (98-107); Estimated GFR 59; Globulin 2.9 g/dL (2.4-3.5); Glucose 100 mg/dL (83-110); Potassium 4.5 mmol/L (3.5-5.1); Protein, Total 6.8 g/dL (5.8-8.1); Sodium 142 mmol/L (136-145)
[2022-06-21] MEDS ORDERED: Azithromycin 500 MG VIAL ONE (13:34)
[2022-06-21] MEDS ORDERED: cefTRIAXone\\ROCEPHIN 2 GM VIAL ONE (13:34)
[2022-06-21] MEDS ORDERED: Ondansetron PF 4 MG/2 ML Vial IVP PRN (13:56)
[2022-06-21] MEDS ORDERED: Acetaminophen 325 MG TAB PO PRN (13:56)
[2022-06-21] MEDS ORDERED: Ondansetron ODT 4 MG TAB PO PRN (13:56)
[2022-06-21] MEDS ORDERED: diphenhydrAMINE 25 MG CAP PO PRN (14:09)
[2022-06-21] MEDS ORDERED: hydrOXYzine 25 MG TAB PO PRN (14:09)
[2022-06-21] MEDS ORDERED: GUAIFENESIN SF SOLN 200 MG/10 ML UDCUP PO PRN (14:15)
[2022-06-21 18:18] VITALS: BMI 41.1
[2022-06-21] MEDS: Gabapentin 300 MG CAP PO SCH ×2 (18:27→21:25)
[2022-06-21] MEDS ORDERED: Non-Formulary Item 1 EACH (Gabapentin [Gabapentin] 600 MG Tablet) PO SCH (21:00)
[2022-06-21] MEDS: Aspirin 81 mg Enteric Coated Tablet PO SCH (21:26)
[2022-06-21] MEDS: HYDROcodone/Acetaminophen 10/325 mg Tablet PO PRN (21:26)
[2022-06-21] MEDS: Amlodipine 10 MG TAB PO SCH (21:26)
[2022-06-21] MEDS: Cyclobenzaprine 10 MG TAB PO PRN (21:26)
[2022-06-21] MEDS: Famotidine 20 MG TAB PO SCH (21:26)
[2022-06-22] MEDS: HYDROcodone/Acetaminophen 10/325 mg Tablet PO PRN ×5 (00:58→20:38)
[2022-06-22 05:02] LABS: #Lymphocytes 1.1 thou/uL (1.20-3.40); #Monocytes 0.7 thou/uL (0.11-0.59); #Neutrophils 12.9 thou/uL (1.40-6.50); %Basophils 0.1 % (0.0-1.0); %Eosinophils 0.1 % (0.0-10.0); %Lymphocytes 7.2 % (21.0-51.0); %Neutrophils 87.7 % (42.0-75.0); Hemoglobin 9.8 g/dL (12.0-16.0); Mean Corpuscular HGB CONC 33.9 g/dL (32.0-36.0); Mean Corpuscular Hemoglobin 32.6 pg (27.0-31.0); Mean Corpuscular Volume 96.3 fL (78.0-98.0); Mean Platelet Volume 8.4 fL (7.4-10.4); Platelet Count 173 thou/uL (130-400); RBC Distribution Width 11.4 % (11.5-14.5); Red Blood Cell (RBC) Count 3.01 mill/uL (4.20-5.40); White Blood Cell (WBC) Count 14.7 thou/uL (4.8-10.8)
[2022-06-22 05:24] LABS: Anion Gap 14 mmol/L (10-20); BUN (Urea Nitrogen) 20 mg/dL (9.8-20.1); Calc. Creatinine Clearance 103 mL/min (70-130); Calcium 9.3 mg/dL (7.8-10.44); Carbon Dioxide 26 mmol/L (23-31); Chloride 106 mmol/L (98-107); Estimated GFR 68; Glucose 125 mg/dL (83-110); Magnesium 1.9 mg/dL (1.6-2.6); Potassium 4.5 mmol/L (3.5-5.1); Sodium 141 mmol/L (136-145)
[2022-06-22] MEDS: methylPREDNISolone Sod Succ 40 MG VIAL IVP SCH ×3 (05:51→18:16)
[2022-06-22] MEDS: Enoxaparin Sodium 40 MG/0.4 ML SYRINGE SC SCH (10:44)
[2022-06-22] MEDS: Gabapentin 300 MG CAP PO SCH ×3 (10:44→20:24)
[2022-06-22] MEDS: Cyclobenzaprine 10 MG TAB PO PRN ×2 (10:46→15:33)
[2022-06-22] MEDS: Aspirin 81 mg Enteric Coated Tablet PO SCH ×2 (10:47→20:23)
[2022-06-22] MEDS: Famotidine 20 MG TAB PO SCH ×2 (10:47→20:24)
[2022-06-22] MEDS ORDERED: Albuterol 200 PUFF (6.7GM INHALER) INH PRN (11:34)
[2022-06-22] MEDS: Azithromycin 500 MG in Sodium Chloride 0.9% 250 ML 250 ML IVPB SCH (15:35)
[2022-06-22] MEDS ORDERED: Furosemide 40 MG/4 ML VIAL SLOW IVP SCH (17:30)
[2022-06-22] MEDS: cefTRIAXone\\ROCEPHIN 1 GM in Sodium Chloride 0.9% 100 ML IVPB SCH (18:16)
[2022-06-22] MEDS: Amlodipine 10 MG TAB PO SCH (20:23)
[2022-06-23] MEDS: methylPREDNISolone Sod Succ 40 MG VIAL IVP SCH ×5 (00:56→23:40)
[2022-06-23] MEDS: HYDROcodone/Acetaminophen 10/325 mg Tablet PO PRN ×5 (01:04→23:39)
[2022-06-23 04:50] LABS: #Lymphocytes 0.8 thou/uL (1.20-3.40); #Monocytes 0.3 thou/uL (0.11-0.59); #Neutrophils 12.1 thou/uL (1.40-6.50); %Eosinophils 0.1 % (0.0-10.0); %Lymphocytes 5.8 % (21.0-51.0); %Neutrophils 92.1 % (42.0-75.0); Hemoglobin 10.2 g/dL (12.0-16.0); Mean Corpuscular HGB CONC 32.3 g/dL (32.0-36.0); Mean Corpuscular Hemoglobin 30.8 pg (27.0-31.0); Mean Corpuscular Volume 95.4 fL (78.0-98.0); Mean Platelet Volume 8.3 fL (7.4-10.4); Platelet Count 197 thou/uL (130-400); RBC Distribution Width 11.3 % (11.5-14.5); Red Blood Cell (RBC) Count 3.31 mill/uL (4.20-5.40); White Blood Cell (WBC) Count 13.1 thou/uL (4.8-10.8)
[2022-06-23 05:06] LABS: Anion Gap 15 mmol/L (10-20); BUN (Urea Nitrogen) 26 mg/dL (9.8-20.1); Calc. Creatinine Clearance 90 mL/min (70-130); Calcium 9.3 mg/dL (7.8-10.44); Carbon Dioxide 27 mmol/L (23-31); Chloride 102 mmol/L (98-107); Estimated GFR 59; Glucose 146 mg/dL (83-110); Potassium 4.1 mmol/L (3.5-5.1); Sodium 140 mmol/L (136-145)
[2022-06-23] MEDS: Furosemide 40 MG/4 ML VIAL SLOW IVP SCH ×2 (05:36→15:19)
[2022-06-23] MEDS: Gabapentin 300 MG CAP PO SCH ×3 (08:36→20:02)
[2022-06-23] MEDS: Famotidine 20 MG TAB PO SCH ×2 (08:38→20:02)
[2022-06-23] MEDS: Enoxaparin Sodium 40 MG/0.4 ML SYRINGE SC SCH (08:39)
[2022-06-23] MEDS: Aspirin 81 mg Enteric Coated Tablet PO SCH ×2 (08:39→20:02)
[2022-06-23] MEDS: Azithromycin 500 MG in Sodium Chloride 0.9% 250 ML 250 ML IVPB SCH (15:20)
[2022-06-23] MEDS: cefTRIAXone\\ROCEPHIN 1 GM in Sodium Chloride 0.9% 100 ML IVPB SCH (16:25)
[2022-06-23] MEDS: Amlodipine 10 MG TAB PO SCH (20:01)
[2022-06-24] MEDS: HYDROcodone/Acetaminophen 10/325 mg Tablet PO PRN ×4 (04:09→20:42)
[2022-06-24 04:27] LABS: #Basophils 0.1 thou/uL (0.0-0.2); #Lymphocytes 0.8 thou/uL (1.20-3.40); #Monocytes 0.2 thou/uL (0.11-0.59); %Basophils 0.7 % (0.0-1.0); %Eosinophils 0.1 % (0.0-10.0); %Lymphocytes 6.8 % (21.0-51.0); %Neutrophils 90.4 % (42.0-75.0); Hemoglobin 11.2 g/dL (12.0-16.0); Mean Corpuscular HGB CONC 33.2 g/dL (32.0-36.0); Mean Corpuscular Hemoglobin 31.8 pg (27.0-31.0); Mean Corpuscular Volume 95.7 fL (78.0-98.0); Platelet Count 228 thou/uL (130-400); RBC Distribution Width 11.1 % (11.5-14.5); Red Blood Cell (RBC) Count 3.53 mill/uL (4.20-5.40); White Blood Cell (WBC) Count 11.1 thou/uL (4.8-10.8)
[2022-06-24 04:56] LABS: Anion Gap 17 mmol/L (10-20); BUN (Urea Nitrogen) 32 mg/dL (9.8-20.1); Calc. Creatinine Clearance 86 mL/min (70-130); Calcium 9.2 mg/dL (7.8-10.44); Carbon Dioxide 27 mmol/L (23-31); Chloride 99 mmol/L (98-107); Estimated GFR 55; Glucose 175 mg/dL (83-110); Potassium 3.9 mmol/L (3.5-5.1); Sodium 139 mmol/L (136-145)
[2022-06-24] MEDS: Furosemide 40 MG/4 ML VIAL SLOW IVP SCH ×2 (05:32→14:43)
[2022-06-24] MEDS: methylPREDNISolone Sod Succ 40 MG VIAL IVP SCH (05:32)
[2022-06-24] MEDS: Enoxaparin Sodium 40 MG/0.4 ML SYRINGE SC SCH (08:15)
[2022-06-24] MEDS: Gabapentin 300 MG CAP PO SCH ×3 (08:16→20:41)
[2022-06-24] MEDS: Aspirin 81 mg Enteric Coated Tablet PO SCH ×2 (08:17→20:41)
[2022-06-24] MEDS: Famotidine 20 MG TAB PO SCH ×2 (08:18→20:41)
[2022-06-24] MEDS ORDERED: Mag-Al 1200 mg/1200 mg/30 ML UDCUP PO PRN (09:03)
[2022-06-24] MEDS: Azithromycin 500 MG in Sodium Chloride 0.9% 250 ML 250 ML IVPB SCH (14:55)
[2022-06-24] MEDS: cefTRIAXone\\ROCEPHIN 1 GM in Sodium Chloride 0.9% 100 ML IVPB SCH (15:57)
[2022-06-24] MEDS: Amlodipine 10 MG TAB PO SCH (20:41)
[2022-06-24] MEDS: Cyclobenzaprine 10 MG TAB PO PRN (20:46)
[2022-06-25] MEDS: HYDROcodone/Acetaminophen 10/325 mg Tablet PO PRN ×4 (00:43→13:31)
[2022-06-25 04:14] LABS: #Lymphocytes 2.2 thou/uL (1.20-3.40); #Monocytes 0.9 thou/uL (0.11-0.59); #Neutrophils 7.1 thou/uL (1.40-6.50); %Basophils 0.1 % (0.0-1.0); %Eosinophils 0.3 % (0.0-10.0); %Lymphocytes 21.5 % (21.0-51.0); %Monocytes 8.6 % (0.0-10.0); %Neutrophils 69.5 % (42.0-75.0); Hemoglobin 12.3 g/dL (12.0-16.0); Mean Corpuscular HGB CONC 32.5 g/dL (32.0-36.0); Mean Corpuscular Hemoglobin 30.6 pg (27.0-31.0); Mean Corpuscular Volume 94.2 fL (78.0-98.0); Mean Platelet Volume 7.8 fL (7.4-10.4); Platelet Count 239 thou/uL (130-400); RBC Distribution Width 11.1 % (11.5-14.5); Red Blood Cell (RBC) Count 4.03 mill/uL (4.20-5.40); White Blood Cell (WBC) Count 10.3 thou/uL (4.8-10.8)
[2022-06-25 04:36] LABS: Anion Gap 14 mmol/L (10-20); BUN (Urea Nitrogen) 35 mg/dL (9.8-20.1); Calc. Creatinine Clearance 73 mL/min (70-130); Carbon Dioxide 31 mmol/L (23-31); Chloride 98 mmol/L (98-107); Estimated GFR 46; Glucose 160 mg/dL (83-110); Sodium 140 mmol/L (136-145)
[2022-06-25] MEDS: Furosemide 40 MG/4 ML VIAL SLOW IVP SCH (05:43)
[2022-06-25] MEDS ORDERED: predniSONE 20 MG TAB PO SCH (08:00)
[2022-06-25] MEDS: Gabapentin 300 MG CAP PO SCH (09:40)
[2022-06-25] MEDS: Enoxaparin Sodium 40 MG/0.4 ML SYRINGE SC SCH (09:42)
[2022-06-25] MEDS: Famotidine 20 MG TAB PO SCH (09:42)
[2022-06-25] MEDS: Aspirin 81 mg Enteric Coated Tablet PO SCH (09:45)
[2022-06-25 12:05] VITALS: BP 142/65; TEMP 97.4
[2022-06-25] MEDS ORDERED: Potassium Chloride 20 MEQ TAB PO SCH (13:00)
== END 2022-06-25 14:30 | disposition home or self-care (01) | DRG 291 ==
LOC: ERS 10:53 → ERHOLD 13:53 → 2NO 17:38
PROVIDERS: ADMIT Hospitalist; ATTEND Hospitalist
DX: I11.0 Hypertensive heart disease with heart failure (principal); I50.33 Acute on chronic diastolic (congestive) heart failure; J96.01 Acute respiratory failure with hypoxia; Z68.41 Body mass index [BMI] 40.0-44.9, adult; J45.901 Unspecified asthma with (acute) exacerbation; Z20.822 Contact with and (suspected) exposure to COVID-19; M19.90 Unspecified osteoarthritis, unspecified site; G89.29 Other chronic pain; E66.01 Morbid (severe) obesity due to excess calories; J20.9 Acute bronchitis, unspecified; Z88.0 Allergy status to penicillin; Z91.041 Radiographic dye allergy status; Z79.899 Other long term (current) drug therapy; Z79.52 Long term (current) use of systemic steroids; Z79.82 Long term (current) use of aspirin
CPT/HCPCS: 36415; 36416; 71045; 80048; 80053; 82550; 83735; 83880; 84484; 85025; 85379; 93306; 94640; 96365; 96367; 96374; J0456; J0696; J1650; J1940; J2920; J2930; J3490; J7050; J7512; J7620; U0003; U0005

== ENCOUNTER 2022-10-29 03:47 | Inpatient (IN) | payer MEDICARE ==
[2022-10-29 04:23] LABS: #Basophils 0.1 thou/uL (0.0-0.2); #Eosinphils 0.2 thou/uL (0.0-0.7); #Lymphocytes 1.2 thou/uL (1.20-3.40); #Monocytes 0.7 thou/uL (0.11-0.59); #Neutrophils 10.6 thou/uL (1.40-6.50); %Basophils 0.8 % (0.0-1.0); %Eosinophils 1.3 % (0.0-10.0); %Lymphocytes 9.3 % (21.0-51.0); %Monocytes 5.3 % (0.0-10.0); %Neutrophils 83.3 % (42.0-75.0); Hemoglobin 11.2 g/dL (12.0-16.0); Mean Corpuscular HGB CONC 32.1 g/dL (32.0-36.0); Mean Corpuscular Hemoglobin 29.9 pg (27.0-31.0); Mean Corpuscular Volume 92.9 fl (78.0-98.0); Mean Platelet Volume 7.7 fL (7.4-10.4); Platelet Count 290 10x3/uL (130-400); RBC Distribution Width 12.1 % (11.5-14.5); Red Blood Cell (RBC) Count 3.76 mill/uL (4.20-5.40); White Blood Cell (WBC) Count 12.7 10x3/uL (4.8-10.8)
[2022-10-29 04:40] LABS: Bacteria/HPF None Seen HPF (None Seen); Bilirubin 1+ (Negative); Blood, Urine 2+ (Negative); Clarity Clear (Clear); Glucose, Urine (Dipstick) Normal (Negative); Ketone, Urine 80 mg/dL (Negative); Leukocyte Negative Leu/uL (Negative); Nitrite Negative (Negative); Protein, Urine (Dipstick) 200 mg/dL (Neg-Trace); RBC/HPF 0-3 HPF (0-3); Specific Gravity, Urine 1.031 (1.002-1.036); Squamous Epithelial None Seen HPF (0-3); Urobilinogen 3 mg/dL (Less than 2); WBC/HPF 0-3 HPF (0-3)
[2022-10-29 04:49] LABS: ALT (SGPT) 24 U/L (8-55); AST (SGOT) 23 U/L (5-34); Albumin 3.7 g/dL (3.4-4.8); Alkaline Phosphatase 111 U/L (40-110); Anion Gap 17 mmol/L (10-20); BUN (Urea Nitrogen) 14 mg/dL (9.8-20.1); Bilirubin, Total 0.4 mg/dL (0.2-1.2); Calc. Creatinine Clearance 0 mL/min (70-130); Calcium 9.7 mg/dL (7.8-10.44); Carbon Dioxide 21 mmol/L (23-31); Chloride 103 mmol/L (98-107); Estimated GFR 72; Globulin 3.9 g/dL (2.4-3.5); Glucose 127 mg/dL (83-110); Potassium 3.6 mmol/L (3.5-5.1); Protein, Total 7.6 g/dL (5.8-8.1); Sodium 137 mmol/L (136-145)
[2022-10-29] MEDS ORDERED: HYDROcodone/Acetaminophen 5/325 mg Tablet ONE (06:09)
[2022-10-29] MEDS ORDERED: Azithromycin 500 MG VIAL ONE (06:09)
[2022-10-29 06:10] LABS: SARS-CoV-2 NAA Rapid Test Not Detected (NotDetected)
[2022-10-29] MEDS ORDERED: methylPREDNISolone Sod Succ/PF 125 MG/2 ML VIAL ONE (06:53)
[2022-10-29] MEDS ORDERED: cefTRIAXone\\ROCEPHIN 1 GM VIAL ONE (06:53)
[2022-10-29] MEDS ORDERED: Ondansetron PF 4 MG/2 ML Vial IVP PRN (07:53)
[2022-10-29] MEDS ORDERED: Ondansetron ODT 4 MG TAB PO PRN (07:53)
[2022-10-29] MEDS ORDERED: Enoxaparin Sodium 30 MG/0.3 ML SYRINGE ONE (09:37)
[2022-10-29] MEDS ORDERED: Benzonatate 100 MG CAP ONE (09:37)
[2022-10-29] MEDS: Enoxaparin Sodium 30 MG/0.3 ML SYRINGE SC SCH (09:39)
[2022-10-29] MEDS: Benzonatate 100 MG CAP PO PRN ×2 (09:45→16:01)
[2022-10-29 09:50] LABS: Magnesium 1.9 mg/dL (1.6-2.6)
[2022-10-29] MEDS: Sodium Chloride 0.9% 1,000 ML IV SCH (09:50)
[2022-10-29 11:24] VITALS: BMI 29.2
[2022-10-29 11:41] LABS: Troponin I 0.022 ng/mL (< 0.028)
[2022-10-29] MEDS: Doxycycline 100 MG in Sodium Chloride 0.9% 100 ML IVPB SCH (13:28)
[2022-10-29] MEDS ORDERED: FLU VACC QS2022-23(65YR UP)/PF 240 MCG/0.7 ML SYRINGE IM ONE (15:30)
[2022-10-29] MEDS ORDERED: Triamcinolone 0.1% Cream 15 GM TUBE TOP PRN (17:58)
[2022-10-29] MEDS: HYDROcodone/Acetaminophen 10/325 mg Tablet PO PRN (18:12)
[2022-10-29] MEDS ORDERED: Gabapentin 300 MG CAP PO SCH (21:00)
[2022-10-29] MEDS: Aspirin 81 mg Enteric Coated Tablet PO SCH (21:04)
[2022-10-29] MEDS: Cyclobenzaprine 10 MG TAB PO SCH (21:04)
[2022-10-29] MEDS: Gabapentin 300 MG CAP PO SCH (21:05)
[2022-10-30] MEDS: Doxycycline 100 MG in Sodium Chloride 0.9% 100 ML IVPB SCH (01:11)
[2022-10-30] MEDS ORDERED: diphenhydrAMINE 25 MG CAP PO SCH (02:15)
[2022-10-30] MEDS: Benzonatate 100 MG CAP PO PRN (02:26)
[2022-10-30] MEDS: Albuterol Sulfate 2.5 mg/3 ml Neb NEB PRN ×3 (04:23→14:35)
[2022-10-30 05:21] LABS: #Lymphocytes 1.2 thou/uL (1.20-3.40); #Monocytes 0.6 thou/uL (0.11-0.59); #Neutrophils 10.1 thou/uL (1.40-6.50); %Eosinophils 0.2 % (0.0-10.0); %Lymphocytes 10.2 % (21.0-51.0); %Monocytes 4.9 % (0.0-10.0); %Neutrophils 84.7 % (42.0-75.0); Hemoglobin 10.6 g/dL (12.0-16.0); Mean Corpuscular HGB CONC 31.9 g/dL (32.0-36.0); Mean Corpuscular Hemoglobin 29.7 pg (27.0-31.0); Mean Corpuscular Volume 93.3 fl (78.0-98.0); Mean Platelet Volume 7.5 fL (7.4-10.4); Platelet Count 320 10x3/uL (130-400); Red Blood Cell (RBC) Count 3.57 mill/uL (4.20-5.40); White Blood Cell (WBC) Count 11.9 10x3/uL (4.8-10.8)
[2022-10-30 05:38] LABS: Anion Gap 16 mmol/L (10-20); BUN (Urea Nitrogen) 15 mg/dL (9.8-20.1); Calc. Creatinine Clearance 76 mL/min (70-130); Calcium 9.2 mg/dL (7.8-10.44); Carbon Dioxide 18 mmol/L (23-31); Chloride 108 mmol/L (98-107); Estimated GFR 78; Glucose 120 mg/dL (83-110); Potassium 3.4 mmol/L (3.5-5.1); Sodium 139 mmol/L (136-145)
[2022-10-30] MEDS ORDERED: Azithromycin 500 MG in Sodium Chloride 0.9% 250 ML 250 ML IVPB SCH (06:00)
[2022-10-30] MEDS ORDERED: predniSONE 5 MG TAB PO SCH (08:00)
[2022-10-30] MEDS: Aspirin 81 mg Enteric Coated Tablet PO SCH ×2 (09:08→20:47)
[2022-10-30] MEDS: cefTRIAXone\\ROCEPHIN 1 GM in Sodium Chloride 0.9% 100 ML IVPB SCH (09:10)
[2022-10-30] MEDS: Dexamethasone 4 mg/ml Vial SLOW IVP SCH (09:15)
[2022-10-30] MEDS: Enoxaparin Sodium 30 MG/0.3 ML SYRINGE SC SCH (09:19)
[2022-10-30] MEDS: Cyclobenzaprine 10 MG TAB PO SCH ×3 (09:19→20:47)
[2022-10-30] MEDS: Gabapentin 300 MG CAP PO SCH ×3 (09:20→20:47)
[2022-10-30] MEDS: Spironolactone 25 MG TAB PO SCH (09:21)
[2022-10-30] MEDS ORDERED: Electrolyte Replacement Protocol 1 EACH FS SCH (09:45)
[2022-10-30] MEDS: Azithromycin 500 MG in Sodium Chloride 0.9% 250 ML 250 ML IVPB SCH (10:00)
[2022-10-30] MEDS: Sodium Chloride 0.9% 1,000 ML IV SCH (10:06)
[2022-10-30] MEDS: HYDROcodone/Acetaminophen 10/325 mg Tablet PO PRN ×2 (10:09→16:45)
[2022-10-30] MEDS ORDERED: Electrolyte Replacement Protocol FS PRN (10:15)
[2022-10-30] MEDS ORDERED: Magnesium 2 GM/50 ML(in water) 2 GM in Premix Bag 1 BAG IVPB SCH (10:15)
[2022-10-30] MEDS ORDERED: Potassium Chloride 20 MEQ TAB PO SCH (12:00)
[2022-10-30] MEDS ORDERED: Sodium Chloride 0.9% 1,000 ML IV SCH (15:48)
[2022-10-30 18:02] LABS: Legionella Urinary Ag Negative (Negative); Strep pneumo Urine Ag NEGATIVE (NEGATIVE)
[2022-10-30] MEDS: guaiFENesin ER 600 MG TAB PO SCH (20:47)
[2022-10-31] MEDS: HYDROcodone/Acetaminophen 10/325 mg Tablet PO PRN ×4 (03:05→21:36)
[2022-10-31] MEDS: Benzonatate 100 MG CAP PO PRN ×4 (04:00→22:28)
[2022-10-31 05:01] LABS: #Lymphocytes 1.1 thou/uL (1.20-3.40); #Monocytes 0.6 thou/uL (0.11-0.59); #Neutrophils 8.8 thou/uL (1.40-6.50); %Basophils 0.2 % (0.0-1.0); %Eosinophils 0.2 % (0.0-10.0); %Lymphocytes 10.6 % (21.0-51.0); Hemoglobin 10.7 g/dL (12.0-16.0); Mean Corpuscular HGB CONC 32.2 g/dL (32.0-36.0); Mean Corpuscular Hemoglobin 30.2 pg (27.0-31.0); Mean Corpuscular Volume 93.8 fl (78.0-98.0); Platelet Count 311 10x3/uL (130-400); RBC Distribution Width 12.4 % (11.5-14.5); Red Blood Cell (RBC) Count 3.55 mill/uL (4.20-5.40); White Blood Cell (WBC) Count 10.6 10x3/uL (4.8-10.8)
[2022-10-31 05:34] LABS: Anion Gap 15 mmol/L (10-20); Calc. Creatinine Clearance 76 mL/min (70-130); Calcium 9.2 mg/dL (7.8-10.44); Carbon Dioxide 21 mmol/L (23-31); Chloride 111 mmol/L (98-107); Estimated GFR 78; Glucose 117 mg/dL (83-110); Magnesium 2.4 mg/dL (1.6-2.6); Phosphorus 2.7 mg/dL (2.3-4.7); Potassium 3.8 mmol/L (3.5-5.1); Sodium 143 mmol/L (136-145)
[2022-10-31 07:19] LABS: BUN (Urea Nitrogen) 19 mg/dL (9.8-20.1)
[2022-10-31] MEDS: cefTRIAXone\\ROCEPHIN 1 GM in Sodium Chloride 0.9% 100 ML IVPB SCH (08:07)
[2022-10-31] MEDS: Aspirin 81 mg Enteric Coated Tablet PO SCH ×2 (08:07→20:14)
[2022-10-31] MEDS: Cyclobenzaprine 10 MG TAB PO SCH ×3 (08:08→20:14)
[2022-10-31] MEDS: Enoxaparin Sodium 30 MG/0.3 ML SYRINGE SC SCH (08:08)
[2022-10-31] MEDS: Multivit, Therapeutic 1 TAB PO SCH (08:09)
[2022-10-31] MEDS: guaiFENesin ER 600 MG TAB PO SCH ×2 (08:09→08:15)
[2022-10-31] MEDS: Dexamethasone 4 mg/ml Vial SLOW IVP SCH (08:11)
[2022-10-31] MEDS: Spironolactone 25 MG TAB PO SCH (08:11)
[2022-10-31] MEDS: Gabapentin 300 MG CAP PO SCH ×3 (08:11→20:15)
[2022-10-31] MEDS: Azithromycin 500 MG in Sodium Chloride 0.9% 250 ML 250 ML IVPB SCH (09:24)
[2022-10-31] MEDS ORDERED: predniSONE 20 MG TAB PO SCH (17:00)
[2022-10-31] MEDS: guaiFENesin/DM ER PO SCH (20:14)
[2022-11-01] MEDS: HYDROcodone/Acetaminophen 10/325 mg Tablet PO PRN ×2 (03:51→09:28)
[2022-11-01] MEDS: Benzonatate 100 MG CAP PO PRN (03:52)
[2022-11-01] MEDS ORDERED: predniSONE 20 MG TAB PO SCH (08:00)
[2022-11-01 08:19] VITALS: BP 143/64; TEMP 97.6
[2022-11-01] MEDS ORDERED: Azithromycin 250 MG TAB PO SCH (09:00)
[2022-11-01] MEDS: Aspirin 81 mg Enteric Coated Tablet PO SCH (09:13)
[2022-11-01] MEDS: cefTRIAXone\\ROCEPHIN 1 GM in Sodium Chloride 0.9% 100 ML IVPB SCH (09:14)
[2022-11-01] MEDS: Cyclobenzaprine 10 MG TAB PO SCH (09:15)
[2022-11-01] MEDS: Gabapentin 300 MG CAP PO SCH ×2 (09:17→12:25)
[2022-11-01] MEDS: guaiFENesin/DM ER PO SCH (09:18)
[2022-11-01] MEDS: Multivit, Therapeutic 1 TAB PO SCH (09:19)
[2022-11-01] MEDS: Spironolactone 25 MG TAB PO SCH (09:19)
[2022-11-01] MEDS: Enoxaparin Sodium 30 MG/0.3 ML SYRINGE SC SCH (09:23)
== END 2022-11-01 13:22 | disposition home or self-care (01) | DRG 871 ==
LOC: ERS 03:47 → ERHOLD 07:49 → 2SW 14:06 → OBSVTOIN 11-01 09:36
PROVIDERS: ADMIT Internal Medicine; ATTEND Internal Medicine
DX: A41.59 Other Gram-negative sepsis (principal); J15.6 Pneumonia due to other Gram-negative bacteria; J45.901 Unspecified asthma with (acute) exacerbation; Z20.822 Contact with and (suspected) exposure to COVID-19; I12.9 Hypertensive chronic kidney disease with stage 1 through stage 4 chronic kidney disease, or unspecified chronic kidney disease; E87.6 Hypokalemia; N18.2 Chronic kidney disease, stage 2 (mild); G89.4 Chronic pain syndrome; D53.9 Nutritional anemia, unspecified; R06.89 Other abnormalities of breathing; M19.90 Unspecified osteoarthritis, unspecified site; L40.9 Psoriasis, unspecified; Z90.710 Acquired absence of both cervix and uterus; Z90.49 Acquired absence of other specified parts of digestive tract; Z90.89 Acquired absence of other organs; Z79.82 Long term (current) use of aspirin; Z79.899 Other long term (current) drug therapy; Z79.52 Long term (current) use of systemic steroids; Z88.1 Allergy status to other antibiotic agents; Z91.041 Radiographic dye allergy status; Z88.0 Allergy status to penicillin; Z88.8 Allergy status to other drugs, medicaments and biological substances
CPT/HCPCS: 36415; 51701; 71045; 71250; 78451; 80048; 80053; 81003; 81015; 83605; 83735; 83880; 84100; 84145; 84484; 85025; 85379; 86140; 87040; 87086; 87449; 87899; 93005; 94640; 96372; 96374; 96375; 96376; A9540; G0378; J0456; J0696; J1100; J1650; J2930; J3475; J3490; J7050; J7512; J7611; J7620

== ENCOUNTER 2023-07-09 21:15 | Inpatient (IN) | payer MEDICARE ==
[2023-07-09 22:27] LABS: #Basophils 0.1 thou/uL (0.0-0.2); #Eosinphils 0.5 thou/uL (0.0-0.7); #Monocytes 0.7 thou/uL (0.11-0.59); %Basophils 0.6 % (0.0-1.0); %Eosinophils 4.6 % (0.0-10.0); %Lymphocytes 19.7 % (21.0-51.0); %Monocytes 6.4 % (0.0-10.0); %Neutrophils 68.2 % (42.0-75.0); Hematocrit 33.3 % (36.0-47.0); Hemoglobin 9.9 g/dL (12.0-16.0); Mean Corpuscular HGB CONC 29.7 g/dL (32.0-36.0); Mean Corpuscular Volume 97.7 fl (78.0-98.0); Platelet Count 231 10x3/uL (130-400); RBC Distribution Width 13.3 % (11.5-14.5); Red Blood Cell (RBC) Count 3.41 mill/uL (4.20-5.40); White Blood Cell (WBC) Count 10.2 10x3/uL (4.8-10.8)
[2023-07-09 22:52] LABS: ALT (SGPT) 7 U/L (8-55); AST (SGOT) 12 U/L (5-34); Albumin 3.7 g/dL (3.4-4.8); Alkaline Phosphatase 115 U/L (40-110); Anion Gap 19 mmol/L (10-20); BUN (Urea Nitrogen) 39 mg/dL (9.8-20.1); Bilirubin, Total 0.2 mg/dL (0.2-1.2); Calc. Creatinine Clearance 0 mL/min (70-130); Calcium 8.5 mg/dL (7.8-10.44); Carbon Dioxide 18 mmol/L (23-31); Chloride 106 mmol/L (98-107); Estimated GFR 18; Glucose 128 mg/dL (83-110); Protein, Total 6.7 g/dL (5.8-8.1); Sodium 139 mmol/L (136-145)
[2023-07-09 22:54] LABS: Troponin I Less than 0.010 ng/mL (< 0.028)
[2023-07-10] MEDS ORDERED: Acetaminophen 325 MG TAB PO PRN (01:53)
[2023-07-10] MEDS ORDERED: Bisacodyl 5 MG TAB PO PRN (01:53)
[2023-07-10] MEDS ORDERED: Sodium Chloride 0.9% 1,000 ML IV SCH (02:00)
[2023-07-10 02:23] VITALS: BMI 37.8
[2023-07-10] MEDS: HYDROcodone/Acetaminophen 10/325 mg Tablet PO PRN ×2 (02:51→09:07)
[2023-07-10 05:03] LABS: #Basophils 0.1 thou/uL (0.0-0.2); #Eosinphils 0.7 thou/uL (0.0-0.7); #Monocytes 0.8 thou/uL (0.11-0.59); #Neutrophils 5.8 thou/uL (1.40-6.50); %Basophils 0.6 % (0.0-1.0); %Eosinophils 7.9 % (0.0-10.0); %Lymphocytes 21.5 % (21.0-51.0); %Monocytes 8.1 % (0.0-10.0); %Neutrophils 61.5 % (42.0-75.0); Hematocrit 31.7 % (36.0-47.0); Hemoglobin 9.5 g/dL (12.0-16.0); Mean Corpuscular Hemoglobin 28.4 pg (27.0-31.0); Platelet Count 219 10x3/uL (130-400); RBC Distribution Width 13.2 % (11.5-14.5); Red Blood Cell (RBC) Count 3.35 mill/uL (4.20-5.40); White Blood Cell (WBC) Count 9.4 10x3/uL (4.8-10.8)
[2023-07-10 05:13] LABS: Mean Corpuscular Volume 94.6 fl (78.0-98.0)
[2023-07-10 05:40] LABS: ALT (SGPT) Less than 7 U/L (8-55); AST (SGOT) 11 U/L (5-34); Albumin 3.4 g/dL (3.4-4.8); Alkaline Phosphatase 103 U/L (40-110); Anion Gap 17 mmol/L (10-20); BUN (Urea Nitrogen) 40 mg/dL (9.8-20.1); Bilirubin, Total Less than 0.2 mg/dL (0.2-1.2); Calc. Creatinine Clearance 32 mL/min (70-130); Calcium 8.5 mg/dL (7.8-10.44); Carbon Dioxide 22 mmol/L (23-31); Chloride 107 mmol/L (98-107); Estimated GFR 19; Globulin 2.8 g/dL (2.4-3.5); Glucose 116 mg/dL (83-110); Potassium 3.6 mmol/L (3.5-5.1); Protein, Total 6.2 g/dL (5.8-8.1); Sodium 142 mmol/L (136-145)
[2023-07-10 06:48] LABS: Bacteria/HPF None Seen HPF (None Seen); Bilirubin Negative (Negative); Blood, Urine Negative (Negative); Clarity Clear (Clear); Glucose, Urine (Dipstick) Normal (Negative); Ketone, Urine Negative (Negative); Leukocyte Negative Leu/uL (Negative); Nitrite Negative (Negative); Protein, Urine (Dipstick) 10 mg/dL (Neg-Trace); RBC/HPF None Seen HPF (0-3); Specific Gravity, Urine 1.017 (1.002-1.036); Squamous Epithelial 0-3 HPF (0-3); Urobilinogen Normal mg/dL (Less than 2); WBC/HPF 0-3 HPF (0-3); pH, Urine 5.5 (5.0-9.0)
[2023-07-10] MEDS ORDERED: Albuterol 200 PUFF (6.7GM INHALER) INH PRN ×2 (07:35→17:05)
[2023-07-10] MEDS ORDERED: Aspirin 81 mg Enteric Coated Tablet PO SCH ×2 (09:00)
[2023-07-10] MEDS: Heparin 5,000 UNITS/ML VIAL SC SCH ×3 (09:05→20:15)
[2023-07-10] MEDS: Gabapentin 300 MG CAP PO SCH ×3 (09:09→20:14)
[2023-07-10] MEDS: Cyclobenzaprine 10 MG TAB PO SCH ×2 (09:10→20:14)
[2023-07-10] MEDS: predniSONE 5 MG TAB PO SCH (09:10)
[2023-07-10] MEDS: Morphine 2 MG/ML VIAL SLOW IVP PRN ×2 (15:54→20:05)
[2023-07-10] MEDS: hydrOXYzine 25 MG TAB PO PRN (18:03)
[2023-07-11] MEDS: Morphine 2 MG/ML VIAL SLOW IVP PRN ×2 (02:40→07:39)
[2023-07-11] MEDS: hydrOXYzine 25 MG TAB PO PRN (02:40)
[2023-07-11 05:14] LABS: #Basophils 0.1 thou/uL (0.0-0.2); #Monocytes 0.7 thou/uL (0.11-0.59); #Neutrophils 5.1 thou/uL (1.40-6.50); %Basophils 0.6 % (0.0-1.0); %Eosinophils 11.4 % (0.0-10.0); %Lymphocytes 22.6 % (21.0-51.0); %Monocytes 7.8 % (0.0-10.0); %Neutrophils 57.1 % (42.0-75.0); Hematocrit 33.6 % (36.0-47.0); Mean Corpuscular HGB CONC 29.8 g/dL (32.0-36.0); Mean Corpuscular Hemoglobin 28.4 pg (27.0-31.0); Mean Corpuscular Volume 95.5 fl (78.0-98.0); Mean Platelet Volume 9.9 fL (7.4-10.4); Platelet Count 224 10x3/uL (130-400); RBC Distribution Width 13.1 % (11.5-14.5); Red Blood Cell (RBC) Count 3.52 mill/uL (4.20-5.40); White Blood Cell (WBC) Count 8.8 10x3/uL (4.8-10.8)
[2023-07-11 05:41] LABS: Anion Gap 9 mmol/L (10-20); BUN (Urea Nitrogen) 29 mg/dL (9.8-20.1); Calc. Creatinine Clearance 54 mL/min (70-130); Calcium 9.3 mg/dL (7.8-10.44); Carbon Dioxide 25 mmol/L (23-31); Cardiac Risk 6.1 (Less than 4.5); Chloride 110 mmol/L (98-107); Cholesterol 268 mg/dl (< 200 Desired); Estimated GFR 35; Glucose 91 mg/dL (83-110); HDL Cholesterol 44 mg/dL (>60 Neg Risk); LDL Cholesterol, Calculated 178 mg/dL; Sodium 140 mmol/L (136-145); Triglycerides 232 mg/dL (Less than 150)
[2023-07-11] MEDS: Gabapentin 300 MG CAP PO SCH ×2 (08:33→15:21)
[2023-07-11] MEDS: predniSONE 5 MG TAB PO SCH (08:34)
[2023-07-11] MEDS: Heparin 5,000 UNITS/ML VIAL SC SCH ×2 (08:34→15:21)
[2023-07-11] MEDS: Cyclobenzaprine 10 MG TAB PO SCH (08:34)
[2023-07-11] MEDS ORDERED: Aspirin 81 mg Enteric Coated Tablet PO SCH (09:00)
[2023-07-11 11:40] VITALS: BP 109/54; TEMP 97.7
[2023-07-11] MEDS: HYDROcodone/Acetaminophen 10/325 mg Tablet PO PRN (12:55)
== END 2023-07-11 15:45 | disposition home health service (06) | DRG 92 ==
LOC: ERS 21:15 → 2SE 23:46 → OBSVTOIN 07-10 07:37
PROVIDERS: ADMIT Internal Medicine Nephrology; ATTEND Family Medicine
DX: G92.8 Other toxic encephalopathy (principal); G45.9 Transient cerebral ischemic attack, unspecified; I50.32 Chronic diastolic (congestive) heart failure; N17.9 Acute kidney failure, unspecified; I13.0 Hypertensive heart and chronic kidney disease with heart failure and stage 1 through stage 4 chronic kidney disease, or unspecified chronic kidney disease; M84.650A Pathological fracture in other disease, pelvis, initial encounter for fracture; M19.90 Unspecified osteoarthritis, unspecified site; G89.4 Chronic pain syndrome; E11.40 Type 2 diabetes mellitus with diabetic neuropathy, unspecified; Z88.0 Allergy status to penicillin; Z88.8 Allergy status to other drugs, medicaments and biological substances; Z91.041 Radiographic dye allergy status; Z79.82 Long term (current) use of aspirin; J44.9 Chronic obstructive pulmonary disease, unspecified; R47.1 Dysarthria and anarthria; D63.1 Anemia in chronic kidney disease; E11.22 Type 2 diabetes mellitus with diabetic chronic kidney disease; N18.30 Chronic kidney disease, stage 3 unspecified; X58.XXXA Exposure to other specified factors, initial encounter
CPT/HCPCS: 36415; 70450; 70551; 72100; 80048; 80053; 80061; 81001; 84484; 85025; 93005; J1644; J2272; J7050; J7512

== ENCOUNTER 2023-12-21 07:50 | Inpatient (IN) | payer MEDICARE ==
[2023-12-21] MEDS ORDERED: Furosemide 40 MG (4 mL) VIAL ONE (08:17)
[2023-12-21] MEDS ORDERED: HYDROcodone/Acetaminophen 10/325 mg Tablet ONE (08:18)
[2023-12-21 08:32] LABS: #Basophils 0.1 thou/uL (0.0-0.2); #Eosinphils 1.1 thou/uL (0.0-0.7); #Monocytes 0.6 thou/uL (0.11-0.59); #Neutrophils 8.6 thou/uL (1.40-6.50); %Basophils 0.4 % (0.0-1.0); %Eosinophils 8.3 % (0.0-10.0); %Monocytes 4.2 % (0.0-10.0); %Neutrophils 65.8 % (42.0-75.0); Hematocrit 34.1 % (36.0-47.0); Hemoglobin 10.6 g/dL (12.0-16.0); Mean Corpuscular HGB CONC 31.1 g/dL (32.0-36.0); Mean Corpuscular Hemoglobin 29.9 pg (27.0-31.0); Mean Corpuscular Volume 96.3 fl (78.0-98.0); Mean Platelet Volume 10.3 fL (7.4-10.4); Platelet Count 198 10x3/uL (130-400); RBC Distribution Width 12.6 % (11.5-14.5); Red Blood Cell (RBC) Count 3.54 mill/uL (4.20-5.40)
[2023-12-21 08:57] LABS: ALT (SGPT) 9 U/L (8-55); AST (SGOT) 21 U/L (5-34); Albumin 4.1 g/dL (3.4-4.8); Alkaline Phosphatase 80 U/L (40-110); Anion Gap 12 mmol/L (10-20); BUN (Urea Nitrogen) 20 mg/dL (9.8-20.1); Bilirubin, Total 0.3 mg/dL (0.2-1.2); Calc. Creatinine Clearance 0 mL/min (70-130); Calcium 9.6 mg/dL (7.8-10.44); Carbon Dioxide 25 mmol/L (23-31); Chloride 106 mmol/L (98-107); Estimated GFR 54; Globulin 3.1 g/dL (2.4-3.5); Glucose 102 mg/dL (83-110); Potassium 3.9 mmol/L (3.5-5.1); Protein, Total 7.2 g/dL (5.8-8.1); Sodium 139 mmol/L (136-145)
[2023-12-21 08:58] LABS: Troponin I Less than 0.010 ng/mL (< 0.028)
[2023-12-21] MEDS ORDERED: Senokot S 8.6-50 MG TAB PO PRN (10:47)
[2023-12-21] MEDS ORDERED: Ipratropium/Albuterol 3 ML NEB ONE (11:13)
[2023-12-21 12:16] LABS: Troponin I Less than 0.010 ng/mL (< 0.028)
[2023-12-21 14:00] VITALS: BMI 36.5
[2023-12-21] MEDS: Furosemide 20 MG (2 mL) VIAL SLOW IVP SCH (14:28)
[2023-12-21 14:48] LABS: Troponin I Less than 0.010 ng/mL (< 0.028)
[2023-12-21] MEDS: HYDROcodone/Acetaminophen 10/325 mg Tablet PO PRN (16:11)
[2023-12-21] MEDS: Gabapentin 300 MG CAP PO SCH (20:05)
[2023-12-21] MEDS: hydrOXYzine 25 MG TAB PO PRN (20:09)
[2023-12-21] MEDS: Famotidine 20 MG TAB PO SCH (20:17)
[2023-12-22 05:57] LABS: #Basophils 0.1 thou/uL (0.0-0.2); #Eosinphils 1.2 thou/uL (0.0-0.7); #Monocytes 0.6 thou/uL (0.11-0.59); #Neutrophils 4.4 thou/uL (1.40-6.50); %Basophils 0.6 % (0.0-1.0); %Eosinophils 13.4 % (0.0-10.0); %Lymphocytes 29.2 % (21.0-51.0); %Monocytes 6.4 % (0.0-10.0); %Neutrophils 50.3 % (42.0-75.0); Hematocrit 34.8 % (36.0-47.0); Hemoglobin 10.6 g/dL (12.0-16.0); Mean Corpuscular HGB CONC 30.5 g/dL (32.0-36.0); Mean Corpuscular Hemoglobin 29.7 pg (27.0-31.0); Mean Corpuscular Volume 97.5 fl (78.0-98.0); Platelet Count 196 10x3/uL (130-400); RBC Distribution Width 12.7 % (11.5-14.5); Red Blood Cell (RBC) Count 3.57 mill/uL (4.20-5.40); White Blood Cell (WBC) Count 8.7 10x3/uL (4.8-10.8)
[2023-12-22 06:25] LABS: Anion Gap 13 mmol/L (10-20); BUN (Urea Nitrogen) 21 mg/dL (9.8-20.1); Calc. Creatinine Clearance 64 mL/min (70-130); Calcium 9.6 mg/dL (7.8-10.44); Carbon Dioxide 27 mmol/L (23-31); Chloride 101 mmol/L (98-107); Estimated GFR 46; Glucose 86 mg/dL (83-110); Potassium 4.2 mmol/L (3.5-5.1); Sodium 137 mmol/L (136-145)
[2023-12-22] MEDS: Aspirin 81 mg Enteric Coated Tablet PO SCH (08:54)
[2023-12-22] MEDS: Rosuvastatin 10 MG TAB PO SCH (08:54)
[2023-12-22] MEDS: Nebivolol HCl 5 MG TAB PO SCH (08:55)
[2023-12-22] MEDS: FLU VACC QS2023(65UP)/MF59C/PF 60 MCG/0.5 ML SYRINGE IM ONE (10:42)
[2023-12-22] MEDS: Albuterol 200 PUFF (6.7GM INHALER) INH PRN (11:15)
[2023-12-22 11:25] LABS: SARS-CoV-2 NAA Rapid Test Not Detected (NotDetected)
[2023-12-22] MEDS: Acetaminophen 325 MG TAB PO PRN (20:08)
[2023-12-22] MEDS: guaiFENesin/DM ER PO SCH (20:08)
[2023-12-23 06:50] LABS: ALT (SGPT) 9 U/L (8-55); AST (SGOT) 21 U/L (5-34); Albumin 3.4 g/dL (3.4-4.8); Alkaline Phosphatase 76 U/L (40-110); Anion Gap 17 mmol/L (10-20); BUN (Urea Nitrogen) 32 mg/dL (9.8-20.1); Bilirubin, Total 0.4 mg/dL (0.2-1.2); Calc. Creatinine Clearance 48 mL/min (70-130); Calcium 9.1 mg/dL (7.8-10.44); Carbon Dioxide 21 mmol/L (23-31); Chloride 104 mmol/L (98-107); Estimated GFR 32; Glucose 85 mg/dL (83-110); Protein, Total 6.4 g/dL (5.8-8.1); Sodium 137 mmol/L (136-145)
[2023-12-23] MEDS: Furosemide 20 MG TAB PO SCH (08:27)
[2023-12-23] MEDS: Sodium Chloride 0.9% 500 ML IV SCH (09:37)
[2023-12-23] MEDS: Cyclobenzaprine 10 MG TAB PO PRN (19:15)
[2023-12-24 05:55] LABS: #Basophils 0.1 thou/uL (0.0-0.2); #Eosinphils 1.4 thou/uL (0.0-0.7); #Monocytes 0.6 thou/uL (0.11-0.59); #Neutrophils 3.8 thou/uL (1.40-6.50); %Eosinophils 17.9 % (0.0-10.0); %Monocytes 7.8 % (0.0-10.0); %Neutrophils 49.2 % (42.0-75.0); Hematocrit 32.2 % (36.0-47.0); Hemoglobin 9.8 g/dL (12.0-16.0); Mean Corpuscular HGB CONC 30.4 g/dL (32.0-36.0); Mean Corpuscular Hemoglobin 29.3 pg (27.0-31.0); Mean Corpuscular Volume 96.4 fl (78.0-98.0); Mean Platelet Volume 10.7 fL (7.4-10.4); Platelet Count 191 10x3/uL (130-400); RBC Distribution Width 12.1 % (11.5-14.5); Red Blood Cell (RBC) Count 3.34 mill/uL (4.20-5.40); White Blood Cell (WBC) Count 7.7 10x3/uL (4.8-10.8)
[2023-12-24 06:22] LABS: ALT (SGPT) Less than 7 U/L (8-55); AST (SGOT) 13 U/L (5-34); Albumin 3.7 g/dL (3.4-4.8); Alkaline Phosphatase 69 U/L (40-110); Anion Gap 13 mmol/L (10-20); BUN (Urea Nitrogen) 36 mg/dL (9.8-20.1); Bilirubin, Total 0.4 mg/dL (0.2-1.2); Calc. Creatinine Clearance 57 mL/min (70-130); Calcium 9.2 mg/dL (7.8-10.44); Carbon Dioxide 26 mmol/L (23-31); Chloride 102 mmol/L (98-107); Estimated GFR 39; Globulin 2.8 g/dL (2.4-3.5); Glucose 95 mg/dL (83-110); Potassium 4.1 mmol/L (3.5-5.1); Protein, Total 6.5 g/dL (5.8-8.1); Sodium 137 mmol/L (136-145)
[2023-12-24] MEDS: predniSONE 20 MG TAB PO SCH (08:36)
[2023-12-24 15:59] VITALS: BP 129/66; TEMP 98.4
== END 2023-12-24 18:11 | disposition home or self-care (01) | DRG 291 ==
LOC: ERS 07:50 → 2SW 10:35 → OBSVTOIN 12-22 11:41
PROVIDERS: ADMIT Internal Medicine; ATTEND Emergency Medicine
DX: I11.0 Hypertensive heart disease with heart failure (principal); I50.33 Acute on chronic diastolic (congestive) heart failure; J96.01 Acute respiratory failure with hypoxia; N17.9 Acute kidney failure, unspecified; J45.901 Unspecified asthma with (acute) exacerbation; M19.90 Unspecified osteoarthritis, unspecified site; G89.4 Chronic pain syndrome; T50.2X5A Adverse effect of carbonic-anhydrase inhibitors, benzothiadiazides and other diuretics, initial encounter; F32.A Depression, unspecified; J44.9 Chronic obstructive pulmonary disease, unspecified; Z90.49 Acquired absence of other specified parts of digestive tract; Z90.710 Acquired absence of both cervix and uterus; Z88.1 Allergy status to other antibiotic agents; Z88.0 Allergy status to penicillin; Z91.09 Other allergy status, other than to drugs and biological substances; Z88.8 Allergy status to other drugs, medicaments and biological substances; Z79.51 Long term (current) use of inhaled steroids; Z79.82 Long term (current) use of aspirin; Z79.899 Other long term (current) drug therapy; Z98.890 Other specified postprocedural states; Z11.52 Encounter for screening for COVID-19
CPT/HCPCS: 36415; 71045; 80048; 80053; 83735; 83880; 84145; 84484; 85025; 93005; 94640; 94760; 96374; 96376; 97139; G0378; J1940; J7030; J7512; J7620

== ENCOUNTER 2024-12-19 22:29 | Inpatient (IN) | payer MEDICARE ==
[2024-12-19] MEDS ORDERED: methylPREDNISolone Sod Succ/PF 125 MG/2 ML VIAL ONE (23:00)
[2024-12-19] MEDS ORDERED: fentaNYL 50 mcg/mL 1 mL Vial ONE (23:00)
[2024-12-19] MEDS ORDERED: Cefepime 2 GM VIAL ONE (23:00)
[2024-12-19 23:10] LABS: #Basophils 0.05 10x3/uL (0.0-0.2); %Basophils 0.4 % (0.0-1.0); %Eosinophils 0.9 % (0.0-10.0); %Lymphocytes 16.5 % (21.0-51.0); %Monocytes 8.3 % (0.0-10.0); %Neutrophils 73.5 % (42.0-75.0); Hematocrit 31.7 % (36.0-47.0); Mean Corpuscular HGB CONC 31.5 g/dL (32.0-36.0); Mean Corpuscular Hemoglobin 28.8 pg (27.0-31.0); Mean Corpuscular Volume 91.4 fL (78.0-98.0); Mean Platelet Volume 9.9 fL (7.4-10.4); Platelet Count 251 10x3/uL (130-400); RBC Distribution Width 12.6 % (11.5-14.5); Red Blood Cell (RBC) Count 3.47 mill/uL (4.20-5.40)
[2024-12-19 23:24] LABS: INR-International Normal Ratio 1.2; PTT 34.2 sec (22.9-36.1)
[2024-12-19 23:28] LABS: ALT (SGPT) 9 U/L (Less than 34); AST (SGOT) 34 U/L (11-34); Albumin 3.1 g/dL (3.1-4.5); Alkaline Phosphatase 101 U/L (40-110); Anion Gap 16 mmol/L (10-20); BUN (Urea Nitrogen) 16 mg/dL (9.8-20.1); Bilirubin, Total 0.6 mg/dL (0.3-1.2); Calc. Creatinine Clearance 0 mL/min (70-130); Calcium 8.7 mg/dL (7.8-10.44); Carbon Dioxide 21 mmol/L (23-31); Chloride 105 mmol/L (98-107); Estimated GFR 41; Globulin 3.5 g/dL (2.4-3.5); Glucose 94 mg/dL (83-110); Lipase 12 U/L (8-78); Magnesium 1.5 mg/dL (1.6-2.6); Potassium 3.3 mmol/L (3.5-5.1); Protein, Total 6.6 g/dL (5.8-8.1); Sodium 139 mmol/L (136-145)
[2024-12-19 23:46] LABS: Troponin I 0.021 ng/mL (< 0.028)
[2024-12-20] MEDS ORDERED: Magnesium 2 GM/50 ML BAG (IN WATER) ONE (00:43)
[2024-12-20] MEDS ORDERED: Potassium Chloride 20 MEQ TAB ONE (00:45)
[2024-12-20 03:42] VITALS: BMI 32.5
[2024-12-20] MEDS: Vancomycin (BATCH) 2 GM in Premix 1 BAG IVPB SCH (03:50)
[2024-12-20] MEDS ORDERED: Ondansetron PF 4 MG/2 ML Vial IVP PRN (04:03)
[2024-12-20] MEDS ORDERED: Ondansetron ODT 4 MG TAB PO PRN (04:03)
[2024-12-20] MEDS ORDERED: Acetaminophen 650 MG Suppository PR PRN (04:03)
[2024-12-20] MEDS ORDERED: Electrolyte Replacement Protocol FS SCH (04:05)
[2024-12-20] MEDS: Albuterol 200 PUFF (6.7GM INHALER) INH SCH (07:29)
[2024-12-20] MEDS: Famotidine/PF 20 mg/2ml Vial SLOW IVP SCH (07:33)
[2024-12-20] MEDS: Famotidine 20 MG TAB PO SCH (08:51)
[2024-12-20] MEDS: Methocarbamol 500 MG TAB PO SCH (08:51)
[2024-12-20] MEDS: Atorvastatin Calcium 10 MG TAB PO SCH (08:52)
[2024-12-20] MEDS: Gabapentin 300 MG CAP PO SCH (08:52)
[2024-12-20] MEDS: Doxycycline 100 MG CAP PO SCH (08:52)
[2024-12-20] MEDS: metroNIDAZOLE 500 MG in Premix 1 BAG IVPB SCH (09:59)
[2024-12-20] MEDS: methylPREDNISolone Sod Succ 40 MG VIAL IVP SCH (09:59)
[2024-12-20] MEDS: LevoFLOXacin 750 mg/D5W 750 MG in Premix 1 BAG IVPB SCH (11:40)
[2024-12-20] MEDS: Ipratropium/Albuterol 3 ML NEB NEB SCH (12:58)
[2024-12-20] MEDS: HYDROcodone/Acetaminophen 10/325 mg Tablet PO PRN (15:11)
[2024-12-20] MEDS: Acetaminophen 325 MG TAB PO PRN (16:57)
[2024-12-20 18:27] LABS: Influenza A by NAA Not Detected (NotDetected); Influenza B by NAA Not Detected (NotDetected); SARS-CoV-2 NAA Rapid Test Not Detected (NotDetected)
[2024-12-21 08:09] LABS: #Basophils Less than 0.03 10x3/uL (0.0-0.2); #Eosinophils Less than 0.03 10x3/uL (0.0-0.7); %Basophils 0.1 % (0.0-1.0); %Lymphocytes 2.7 % (21.0-51.0); %Neutrophils 94.3 % (42.0-75.0); Hematocrit 31.5 % (36.0-47.0); Hemoglobin 9.6 g/dL (12.0-16.0); Mean Corpuscular HGB CONC 30.5 g/dL (32.0-36.0); Mean Corpuscular Hemoglobin 28.7 pg (27.0-31.0); Mean Platelet Volume 9.8 fL (7.4-10.4); Platelet Count 297 10x3/uL (130-400); RBC Distribution Width 12.7 % (11.5-14.5); Red Blood Cell (RBC) Count 3.35 mill/uL (4.20-5.40)
[2024-12-21 08:29] LABS: Anion Gap 20 mmol/L (10-20); BUN (Urea Nitrogen) 24 mg/dL (9.8-20.1); Calc. Creatinine Clearance 51 mL/min (70-130); Calcium 9.5 mg/dL (7.8-10.44); Carbon Dioxide 18 mmol/L (23-31); Chloride 107 mmol/L (98-107); Estimated GFR 40; Glucose 177 mg/dL (83-110); Magnesium 2.1 mg/dL (1.6-2.6); Potassium 3.8 mmol/L (3.5-5.1); Sodium 141 mmol/L (136-145)
[2024-12-21] MEDS: Amitriptyline HCl 10 MG TAB PO SCH (08:59)
[2024-12-21] MEDS: Aspirin 81 mg Enteric Coated Tablet PO SCH (08:59)
[2024-12-21] MEDS: hydrOXYzine 25 MG TAB PO SCH ×2 (12:28→20:25)
[2024-12-21] MEDS: Furosemide 40 MG TAB PO SCH (18:44)
[2024-12-22 06:07] LABS: #Basophils Less than 0.03 10x3/uL (0.0-0.2); #Eosinophils Less than 0.03 10x3/uL (0.0-0.7); %Basophils 0.1 % (0.0-1.0); %Lymphocytes 2.5 % (21.0-51.0); %Monocytes 1.6 % (0.0-10.0); %Neutrophils 95.1 % (42.0-75.0); Hematocrit 27.8 % (36.0-47.0); Hemoglobin 8.5 g/dL (12.0-16.0); Mean Corpuscular HGB CONC 30.6 g/dL (32.0-36.0); Mean Corpuscular Hemoglobin 28.8 pg (27.0-31.0); Mean Corpuscular Volume 94.2 fL (78.0-98.0); Mean Platelet Volume 10.2 fL (7.4-10.4); Platelet Count 274 10x3/uL (130-400); RBC Distribution Width 12.9 % (11.5-14.5); Red Blood Cell (RBC) Count 2.95 mill/uL (4.20-5.40)
[2024-12-22 06:24] LABS: Anion Gap 14 mmol/L (10-20); BUN (Urea Nitrogen) 24 mg/dL (9.8-20.1); Calc. Creatinine Clearance 47 mL/min (70-130); Calcium 8.7 mg/dL (7.8-10.44); Carbon Dioxide 22 mmol/L (23-31); Chloride 112 mmol/L (98-107); Estimated GFR 37; Glucose 175 mg/dL (83-110); Potassium 3.7 mmol/L (3.5-5.1); Sodium 144 mmol/L (136-145)
[2024-12-22] MEDS: Furosemide 20 MG TAB PO SCH (08:17)
[2024-12-22] MEDS: Famotidine 20 MG TAB PO SCH (08:18)
[2024-12-22] MEDS: Famotidine/PF 20 mg/2ml Vial SLOW IVP SCH (08:21)
[2024-12-23 06:09] LABS: #Basophils Less than 0.03 10x3/uL (0.0-0.2); #Eosinophils Less than 0.03 10x3/uL (0.0-0.7); %Basophils 0.1 % (0.0-1.0); %Lymphocytes 5.8 % (21.0-51.0); %Monocytes 2.2 % (0.0-10.0); %Neutrophils 90.8 % (42.0-75.0); Hematocrit 33.5 % (36.0-47.0); Hemoglobin 10.2 g/dL (12.0-16.0); Mean Corpuscular HGB CONC 30.4 g/dL (32.0-36.0); Mean Corpuscular Hemoglobin 28.7 pg (27.0-31.0); Mean Corpuscular Volume 94.4 fL (78.0-98.0); Mean Platelet Volume 10.1 fL (7.4-10.4); Platelet Count 310 10x3/uL (130-400); RBC Distribution Width 12.9 % (11.5-14.5); Red Blood Cell (RBC) Count 3.55 mill/uL (4.20-5.40)
[2024-12-23 06:33] LABS: Anion Gap 15 mmol/L (10-20); BUN (Urea Nitrogen) 25 mg/dL (9.8-20.1); Calc. Creatinine Clearance 53 mL/min (70-130); Calcium 9.1 mg/dL (7.8-10.44); Carbon Dioxide 23 mmol/L (23-31); Chloride 111 mmol/L (98-107); Estimated GFR 42; Glucose 122 mg/dL (83-110); Potassium 4.3 mmol/L (3.5-5.1); Sodium 145 mmol/L (136-145)
[2024-12-23] MEDS: LevoFLOXacin 750 mg/D5W 750 MG in Premix 1 BAG IVPB SCH (09:22)
[2024-12-23] MEDS: Budesonide 0.5 MG/2 ML NEB INH SCH (17:57)
[2024-12-24 07:02] LABS: Anion Gap 14 mmol/L (10-20); BUN (Urea Nitrogen) 25 mg/dL (9.8-20.1); Calc. Creatinine Clearance 57 mL/min (70-130); Carbon Dioxide 21 mmol/L (23-31); Chloride 112 mmol/L (98-107); Estimated GFR 46; Glucose 159 mg/dL (83-110); Potassium 4.1 mmol/L (3.5-5.1); Sodium 143 mmol/L (136-145)
[2024-12-24] MEDS ORDERED: guaiFENesin/Codeine 200 mg/20 mg 10 ml Cup PO PRN (08:58)
[2024-12-24] MEDS ORDERED: Benzonatate 100 MG CAP PO PRN (08:58)
[2024-12-24] MEDS: Benzonatate 100 MG CAP PO SCH (09:11)
[2024-12-24] MEDS: guaiFENesin/Codeine 200 mg/20 mg 10 ml Cup PO SCH (09:12)
[2024-12-25] MEDS: LevoFLOXacin 750 MG TAB PO SCH (05:31)
[2024-12-25 10:16] LABS: Anion Gap 16 mmol/L (10-20); BUN (Urea Nitrogen) 20 mg/dL (9.8-20.1); Calc. Creatinine Clearance 69 mL/min (70-130); Carbon Dioxide 23 mmol/L (23-31); Chloride 109 mmol/L (98-107); Estimated GFR 59; Glucose 159 mg/dL (83-110); Potassium 3.8 mmol/L (3.5-5.1); Sodium 144 mmol/L (136-145)
[2024-12-25 12:15] VITALS: BP 147/83; TEMP 98.1
[2024-12-25] MEDS: Calcium Carbonate 500 MG ChewTAB PO PRN (15:06)
[2024-12-26 12:19] LABS: ANA Symphony (Qualitative) Negative (Negative); ANA Symphony (Quantitative) 0.2 Ratio (< 0.7 Negative); dsDNA IgG Antibody Less than 0.6 IU/mL (<10 Negative)
== END 2024-12-25 16:20 | disposition home or self-care (01) | DRG 871 ==
LOC: ERS 22:29 → SURG B 12-20 02:08 → OBSVTOIN 12-21 08:44
PROVIDERS: ADMIT Student in an Organized Health Care Education/Training Program; ATTEND Family Medicine
DX: A41.9 Sepsis, unspecified organism (principal); J18.9 Pneumonia, unspecified organism; N17.9 Acute kidney failure, unspecified; J45.901 Unspecified asthma with (acute) exacerbation; K51.90 Ulcerative colitis, unspecified, without complications; I13.0 Hypertensive heart and chronic kidney disease with heart failure and stage 1 through stage 4 chronic kidney disease, or unspecified chronic kidney disease; L40.9 Psoriasis, unspecified; E78.5 Hyperlipidemia, unspecified; N18.30 Chronic kidney disease, stage 3 unspecified; I50.9 Heart failure, unspecified; D63.1 Anemia in chronic kidney disease; E87.8 Other disorders of electrolyte and fluid balance, not elsewhere classified; Z88.0 Allergy status to penicillin; Z91.048 Other nonmedicinal substance allergy status; Z90.49 Acquired absence of other specified parts of digestive tract; Z84.89 Family history of other specified conditions; Z79.899 Other long term (current) drug therapy; Z79.82 Long term (current) use of aspirin
CPT/HCPCS: 36415; 71046; 71250; 74177; 80048; 80053; 83605; 83690; 83735; 83880; 84484; 85025; 85610; 85730; 86038; 86141; 86225; 87040; 87633; 93005; 94640; 96365; 96366; 96367; 96368; 96375; 96376; G0378; J0692; J1956; J2919; J3010; J3370; J3475; J3490; J7620; J7626